=== PATIENT | male | born 1980 | race Caucasian/White ===

== ENCOUNTER → 2020-06-15 10:26 | Outpatient (CLI) | payer MEDICARE, SELFPAY ==
[2020-06-15 11:43] LABS: Anion Gap 15.8 mEq/L (5-15); Blood Urea Nitrogen 14 mg/dl (9-20); Calcium 10.4 mg/dl (8.4-10.2); Carbon Dioxide 30 mmol/L (22.0-30.0); Chloride 99 mmol/L (98-107); Estimated Glomerular Filt Rate 93 ml/min (>60); GFR (African American) 113 ML/MIN (>60); Glucose 231 mg/dl (74-100); Potassium 4.8 mmoL/L (3.5-5.1); Sodium 140 mmol/L (136-145)
== END ==
LOC: LAB 10:27 → RT 10:49
PROVIDERS: PCP Family Medicine; Visit Provider Urology
DX: R42 Dizziness and giddiness (principal); R94.31 Abnormal electrocardiogram [ECG] [EKG]
CPT/HCPCS: 36415; 80048; 93270

== ENCOUNTER → 2020-06-18 13:44 | Outpatient (CLI) | payer MEDICARE, SELFPAY ==
--- NOTE | 2020-06-18 13:44 | CT_ITS ---
PROCEDURE: CT CHEST W CON CLINCAL INDICATION: chest pain / pulmonary nodule Mid to lower chest/sternal pain, pulmonary nodules COMPARISON: [facility] CTA-CHEST from 03/19/2017 [facility] CT CHEST W/ CONTRAST from 05/14/2017 TECHNIQUE: IV Contrast: 75ml Optiray 350 Axial images obtained with sagittal and coronal reformats. All CT scans at the facility use one or more dose reduction, viz: automated exposure control, ma/kV adjustment per patient size (including targeted exams where dose is matched to indication, i.e. head), or iterative reconstruction technique. FINDINGS: The no mediastinal or hilar mass or adenopathy. There are few small mediastinal lymph nodes which are unchanged. Scattered small axillary nodes are present also unchanged. There is gynecomastia. There is a 6 mm nodule along the right minor fissure nonspecific and unchanged. There are atelectatic/fibrotic changes within the lingula which is slightly worse. No new nodules are evident. No effusions. No acute bony anomalies. Upper abdominal images show diffuse fatty liver IMPRESSION: 1. Parenchymal opacity in the lingula consistent with atelectasis or fibrosis which is slightly progressed. 2. No new nodules. 3. Other nonspecific nonacute findings as described above Dictated by: Xavi Alejandro MD 06/19/2020 08:45 Electronically signed by Xavi Alejandro MD in [place] 06/19/2020 08:45
== END ==
LOC: RAD 13:44
PROVIDERS: PCP Family Medicine; Visit Provider Family Medicine
DX: R07.9 Chest pain, unspecified (principal); R91.1 Solitary pulmonary nodule
CPT/HCPCS: 71260

== ENCOUNTER → 2020-06-21 07:36 | Outpatient (CLI) | payer MEDICARE, SELFPAY ==
--- NOTE | 2020-06-21 | CA_ITS ---
APPROVED REPORT Exam: Exercise Treadmill Technologist: Alix Dang Ht: 5 ft 11 in Wt: 240 lbs BSA: 2.28 m2 HR: 93 bpm BP: 137/79 mmHg Indications: Dizziness Medical History Medications: Lisinopril,,,,, Alprazolam,,,,, Aspirin,,,,, Hydrocodone,,,,, Pantoprazole,,,,, Albuterol,,,,, DulOXETINE,,,,, Tizanidine,,,,, Quetiapine,,,,, Stress Test Details Test: Clover HR Resting HR: 94 bpm Max Heart Rate (APMHR): 180 bpm Max HR Achieved: 157 bpm Target HR (85% APMHR): 153 bpm % of APMHR: 87 Recovery HR: 115 bpm BP Resting BP: 137.0/79.0 mmHg Max BP: 168.0/84.0 mmHg Recovery BP: 138.0/78.0 mmHg ECG Clinical Reason for Termination: Dyspnea Exercise duration: 07:18 min Highest Stage Achieved: Exercise capacity: 10.1 METs Stress ECG Conclusion Resting EKG: Normal sinus rhythm, PRWP Anteriorly. Symptoms: Chest pain Arrhythmias/Ectopy: None during stress. Brief bigeminy at 2:30 in with PVC's, trigeminy after [address]-T Changes: <1.[address] segment changes. Conclusion: Abnormal stress test. Patient exercised on a clover protocol for 7 minutes and 18 seconds to peak hear rate of 157 bpm (target 153 bpm) without ST segment changes. He developed dull SS CP with right arm discomfort (numbness) and dyspnea that caused him to stop exercise. Total METS acheived was 10.1 with peak blood pressure 165/80. He developed frequent PVC's in a bigeminal and trigeminal pattern at 2:30 minutes in recovery that persisted until about 8 minutes in recovery. Abnormal stress test due to development of chest discomfort with exercise relieved with rest. Test Summary Stage 3 01:00 14.0 3.4 154 . . . . REST . . . . . . . Standing REST 03:42 0.0 0.0 94 . 137/ 79 . . Stage 1 01:00 10.0 1.7 116 . . . . Stage 1 02:00 10.0 1.7 130 . . . . Stage 1 03:00 10.0 1.7 136 . 134/ 76 . . Stage 2 01:00 12.0 2.5 142 . . . . Stage 2 . . . . . . . Chest pain Stage 2 02:00 12.0 2.5 149 . . . . Stage 2 03:00 12.0 2.5 151 . 150/ 86 . . Stage 3 01:00 14.0 3.4 154 . . . . Stage 3 01:18 14.0 3.4 156 . . . Stop exercise at 07:18 RECOVERY 01:00 0.0 0.0 149 . . . . RECOVERY 02:00 0.0 0.0 139 . 165/ 80 . . RECOVERY 03:00 0.0 0.0 126 . 165/ 80 . . RECOVERY 04:00 0.0 0.0 124 . 168/ 84 . . RECOVERY 05:00 0.0 0.0 115 . 168/ 84 . . RECOVERY 06:00 0.0 0.0 116 . 168/ 84 . . RECOVERY 07:00 0.0 0.0 118 . 168/ 84 . . RECOVERY 08:00 0.0 0.0 114 . 168/ 84 . . RECOVERY 09:00 0.0 0.0 113 . 168/ 84 . . RECOVERY 10:00 0.0 0.0 115 . 168/ 84 . . RECOVERY 11:00 0.0 0.0 115 . 168/ 84 . . RECOVERY 12:00 0.0 0.0 0 . 168/ 84 . . RECOVERY 12:11 0.0 0.0 0 . 168/ 84 . . Electronically signed by : Ti Renae, 06/21/2020 17:54:49
--- NOTE | 2020-06-21 07:36 | CT_ITS ---
PROCEDURE: CT HEAD/BRAIN WO CON CLINICAL INDICATION: dizziness COMPARISON: No exams were available for comparison TECHNIQUE: Axial images obtained. All CT scans at the facility use one or more dose reduction, viz: automated exposure control, ma/kV adjustment per patient size (including targeted exams where dose is matched to indication, i.e. head), or iterative reconstruction technique. FINDINGS: No midline shift, mass effect, intracranial hemorrhage, hydrocephalus, or extra-axial fluid collection is evident. There minimal dural calcifications near the vertex of the brain. The calvarium has an unremarkable appearance. No mastoid effusion. Both internal auditory canals appear normal. No sinus air-fluid level. IMPRESSION: No acute intracranial finding Dictated by: Dr. Brandon Wright MD 06/21/2020 08:[address] Brandon Wright MD in [place] 06/21/2020 08:27
--- NOTE | 2020-06-21 09:02 | CA_ITS ---
APPROVED REPORT EXAM: Comprehensive 2D, Doppler, and color-flow Echocardiogram Auto Porter: Yamilka Lloyd RDCS Ht: 5 ft 11 in Wt: 240lbs BSA: 2.28 BP: 115/80 mmHg Indications: NEAR SYNCOPE,DIZZINESS,HTN,HLP 2D Dimensions LVOT 2.00 cm (M/F) 1.5-2.5 M-Mode Dimensions RVDd 3.33 cm (0.9-2.6) LVDd 5.02 cm (3.5-5.7) LVDs 4.14 cm (3.5-5.7) IVSd 0.73 cm (0.6-1.1) PWd 0.77 cm (0.6-1.1) EF (Teich) 36.40% FS 17.50% EDV (Teich) 119.30 mL ESV (Teich) 75.90 mL LV Diastology E/A Ratio 0.81 Mitral Valve MV A Velocity 74.00 (40-130 cm/s) Left Ventricle Left atrium is normal size, left ventricle is normal size, there is no concentric left ventricular hypertrophy, visually estimated ejection fraction 55% with no regional wall motion abnormality. Diastolic parameters are within normal range. Right Ventricle Right atrium and right ventricular normal size and contractility. Aortic Valve Aortic valve is grossly normal, there is no aortic stenosis or aortic insufficiency. Mitral Valve Mitral valve is grossly normal, there is trace mitral regurgitation. Tricuspid Valve Tricuspid valve is grossly normal, there is mild tricuspid regurgitation, tricuspid regurgitation jet velocity is inadequate for calculation of the right ventricular systolic pressure. Pulmonic Valve Pulmonic valve is poorly visualized. Great Vessels Aortic root is normal size. Pericardium No significant pericardial effusion noted. Conclusion 1. Normal left ventricular size, preserved left ventricular systolic function, visually estimated ejection fraction 55% with no regional wall motion abnormality, diastolic parameters are within normal range. 2. Trace mitral and mild tricuspid regurgitation. 3. No significant pericardial effusion noted. Electronically signed by : Ti Renae, 06/21/2020 19:00:57
== END ==
LOC: RAD 07:36
PROVIDERS: PCP Family Medicine; Visit Provider Urology
DX: R42 Dizziness and giddiness (principal); I10 Essential (primary) hypertension; R94.31 Abnormal electrocardiogram [ECG] [EKG]
CPT/HCPCS: 70450; 93017; 93306

== ENCOUNTER → 2020-06-22 14:06 | Outpatient (CLI) | payer MEDICARE, SELFPAY ==
[2020-06-22 14:17] LABS: Alanine Aminotransferase 99 U/L (12-78); Alkaline Phosphatase 140 U/L (38-126); Aspartate Amino Transferase 74 U/L (17-59); Bilirubin,Direct 0.2 mg/dl (0.0-0.4); Bilirubin,Indirect 0.5 mg/dL (0.0-0.9); Bilirubin,Total 0.7 mg/dl (0.2-1.3); Bilirubin,Unconjugated 0.6 mg/dL (0.0-1.1)
[2020-06-22 14:18] LABS: Albumin Level 4.5 g/dl (3.5-5.0); Chol/HDL Ratio 11.9 (1-3.5); Cholesterol 298 mg/dl (140-200); HDL Cholesterol 25 mg/dl (40-60); Total Protein,Serum 7.7 g/dl (6.3-8.2)
[2020-06-22 14:28] LABS: Triglycerides 745 mg/dl (30-150)
[2020-06-22 14:29] LABS: Direct LDL Cholesterol 134.14 mg/dL (100-129)
== END ==
PROVIDERS: Visit Provider Family Medicine
DX: I10 Essential (primary) hypertension (principal); R73.09 Other abnormal glucose
CPT/HCPCS: 80061; 80076; 83036

== ENCOUNTER → 2020-11-15 13:26 | Outpatient (CLI) | payer MEDICARE, SELFPAY ==
[2020-11-15 13:38] LABS: Basophils # 0.1 K/mm3 (0-0.2); Basophils % 1.2 % (0.1-2.0); Eosinophils # 0.4 K/mm3 (0.0-0.4); Eosinophils % 3.4 % (0.1-12.0); Hematocrit 45.7 % (42.0-52.0); Hemoglobin 16.2 g/dL (14.1-18.0); Lymphocytes # 4.1 K/mm3 (0.7-4.5); Lymphocytes % 34.1 % (10-50); Mean Corpuscular HGB Conc 35.5 g/dL (31.8-35.4); Mean Corpuscular Hemoglobin 32.9 pg (27.0-31.2); Mean Corpuscular Volume 92.8 fl (80-94); Mean Platelet Volume 8.9 fl (7.4-10.4); Monocytes # 0.6 K/mm3 (0.1-1.0); Monocytes % 5.3 % (1.7-9.3); Neutrophils # 6.7 K/mm3 (1.8-7.8); Platelet Count 242 K/mm3 (142-424); Red Blood Count 4.92 M/mm3 (4.60-6.20)
[2020-11-15 14:41] LABS: Chloride 99 mmol/L (98-107)
[2020-11-15 14:42] LABS: Potassium 3.7 mmoL/L (3.5-5.1); Sodium 140 mmol/L (136-145)
[2020-11-15 14:44] LABS: Alanine Aminotransferase 90 U/L (12-78); Albumin Level 5.3 g/dl (3.5-5.0); Albumin/Globulin Ratio 1.4 (1.1-1.8); Alkaline Phosphatase 106 U/L (38-126); Anion Gap 18.7 mEq/L (5-15); Aspartate Amino Transferase 58 U/L (17-59); Bilirubin,Total 0.8 mg/dl (0.2-1.3); Blood Urea Nitrogen 15 mg/dl (9-20); Carbon Dioxide 26 mmol/L (22.0-30.0); Estimated Glomerular Filt Rate 93 ml/min (>60); GFR (African American) 113 ML/MIN (>60); Globulin 3.7 g/dL (1.3-3.2)
[2020-11-15 14:45] LABS: Chol/HDL Ratio 5.5 (1-3.5); Cholesterol 248 mg/dl (140-200); Glucose 100 mg/dl (74-100); HDL Cholesterol 45 mg/dl (40-60); Triglycerides 208 mg/dl (30-150); VLDL Cholesterol 42 mg/dL (0-40)
[2020-11-15 15:02] LABS: T4 (Thyroxine) 8.1 ug/dl (5.53-11.0)
[2020-11-15 15:16] LABS: Thyroid Stimulating Hormone 1.31 uIU/mL (0.465-4.68)
[2020-11-15 15:32] LABS: Creatinine,Urine Random 72 mg/dL (Not Estab.); Microalbumin < 6.000 mg/L (0-16.7)
[2020-11-15 15:38] LABS: Hemoglobin A1C 5.7 % (4.0-6.0)
== END ==
PROVIDERS: Visit Provider Family Medicine
DX: E11.9 Type 2 diabetes mellitus without complications (principal); R80.9 Proteinuria, unspecified; Z79.84 Long term (current) use of oral hypoglycemic drugs; Z79.899 Other long term (current) drug therapy
CPT/HCPCS: 80053; 80061; 82043; 82570; 83036; 84436; 84443; 85025

== ENCOUNTER → 2021-01-20 09:06 | Outpatient (POV) | payer MEDICARE, SELFPAY ==
[2021-01-20 09:49] VITALS: BP 165/92; PULSE 110; RESP 18; TEMP 36.8; O2SAT 99; BMI 32.1
--- NOTE | 2021-01-27 08:52 | HMH.PMCON ---
Assessment and Plan (1) Neck pain Status: Chronic Category: Medical Code(s): M54.2 - Cervicalgia (2) Low back pain Status: Chronic Category: Medical Code(s): M54.5 - Low back pain (3) Lumbar radiculopathy Status: Chronic Category: Medical Code(s): M54.16 - Radiculopathy, lumbar region - Assessment and plan all Dx Assessment and Plan for all problems:: We will order the patient gabapentin 100 mg 1 tablet p.o. daily. He is having numbness and tingling in his left lower extremity. We will also order him an MRI of his cervical lumbar spine. We will see him back in the clinic afterwards to reevaluate his symptoms and review the MRI.. He has been instructed to contact clinic if he has an concerns for his next appointment. HPI - Data of Consult Patient: new to practice Consult date: 01/27/21 Requesting Physician: Fabienne Garcia APRN Primary Care Provider: Esa Deluca MD - Consult Narrative Reason for consult: Neck and mid back pain History of present illness: Mr. Canada is a 40 year old male who presents today for consultation for neck and low back pain with radicular symptoms. Patient is having numbness and tingling in left lower extremity. Patient has had previous medial branch blocks along with RFA and is gotten little to no relief. He says his pain is progressively worsening to the point that he is now having low back pain as well. He rates his pain an 8 out of 10. He tried physical therapy for greater than 6 weeks along with continued home stretching program and anti-inflammatories. He rates his pain a 7 out of 10 today. He does not have any imaging of his cervical or lumbar spine. CC: Fabienne Garcia APRN [facility] History I have reviewed the patient's past medical history: Yes Medical History: Reports:: Anxiety, Depression, Diabetes Mellitus Type 2, Gastroesophageal Reflux Disease(GERD), Hyperlipidemia, Hypertension Denies:: Cancer, Diabetes Mellitus Type 1, MRSA *Have you ever received a pneumonia vaccine?: Yes *Have you received a flu vaccine this season?: Yes Other Surgeries: Yes: Appendectomy, Cardiac Catheterization Amputation: No Fractures: No - *Social History Smoking Status: Former smoker Tobacco Type: cigarettes Alcohol Intake: never Substance Use Type: denies use *Occupational Status:: other Housing: house Household Members: other *Travel in the last 8 weeks: None - Psychiatric History Pschychiatric History:: Reports:: Anxiety, Depression Family Hx:: Unable to obtain Review of Systems - Review of Systems Review of Systems General: No recent weight changes, no fever, no sleep disturbances Respiratory: No cough, no shortness of air, no recurring pulmonary infections Cardiovascular/peripheral vascular: No chest pain, no palpitations, no edema, no shortness of breath Gastrointestinal: No new onset incontinence, normal bowel movements reported Genitourinary: No new onset incontinence Musculoskeletal: Neck and low back pain Psychiatric: Normal mood/affect Neurological: [Denies weakness in extremities], [denies balance issues] Meds Home Medications Medication Instructions Recorded Confirmed Type aspirin 81 mg tablet,delayed 81 mg PO DAILY tab 05/28/18 12/30/20 History release tizanidine 4 mg tablet 4 mg PO BID tab 05/31/20 12/30/20 History duloxetine 60 mg capsule,delayed 60 mg PO BID cap 06/15/20 12/30/20 History release quetiapine 300 mg tablet 300 mg PO DIRECTED tab 06/15/20 12/30/20 History gemfibrozil 600 mg tablet 600 mg PO BID #60 tab 08/05/20 12/30/20 Rx albuterol sulfate 90 mcg/actuation 1 inh INHALATION QID PRN #18 g 08/09/20 12/30/20 Rx aerosol inhaler cyproheptadine 4 mg tablet 4 mg PO BID tab 08/09/20 12/30/20 History ipratropium 20 mcg-albuterol 100 1 puff INHALATION QID #4 g 08/09/20 12/30/20 Rx mcg/actuation mist for inhalation dulaglutide 1.5 mg/0.5 mL 1.5 mg SQ WEEKLY #2 ml 09/14/20 12/30/20 Rx subcutane
== END ==
LOC: SC.PAIN 09:08
PROVIDERS: PCP Family Medicine; Visit Provider Clinical Nurse Specialist Family Health
DX: M54.2 Cervicalgia (principal); M54.5 Low back pain; M54.16 Radiculopathy, lumbar region
CPT/HCPCS: 99202; G0463

== ENCOUNTER → 2021-01-26 14:21 | Outpatient (CLI) | payer MEDICARE, MEDICAID, SELFPAY ==
--- NOTE | 2021-01-26 14:24 | MR_ITS ---
PROCEDURE: MR LUMBAR SPINE WO CON CLINICAL INDICATION: NECK AND BACK PAIN Pt c/o lbp with left leg pain, numbness and tingling xyrs. Pt denies injury or trauma. COMPARISON: No exams were available for comparison TECHNIQUE: Standard multiplanar multiecho sequences are performed without contrast. 3-D MIP and myelographic images are also rendered and reviewed FINDINGS: There is normal alignment. The spinal cord ends at the L2 level. L1-L2, L2-L3, and L3-L4 have an unremarkable appearance. There is mild facet hypertrophic change at L4-5 with mild bilateral foraminal narrowing slightly greater on the left. L5-S1: Mild bulging disc along with facet and ligamentum hypertrophy with mild bilateral foraminal narrowing. The bulging disc is slightly eccentric to the right abutting the S1 nerve roots on both sides. IMPRESSION: Lumbar spondylosis as described above. Please see above for detailed description. No extruded herniated disc or canal stenosis. Dictated by: Xavi Alejandro MD 01/31/2021 09:38 Xavi Alejandro MD in [place] 01/31/2021 09:38
--- NOTE | 2021-01-26 14:24 | MR_ITS ---
PROCEDURE: MR CERVICAL SPINE WO CON CLINICAL INDICATION: NECK AND BACK PAIN Pt states he is unable to turn head and has bilateral hand numbness. Pt also c/o rt sided scapula pain and has no hx of injury. COMPARISON: No exams were available for comparison TECHNIQUE: Standard multiplanar multiecho sequences are performed without contrast. 3-D MIP and myelographic images are also rendered and reviewed FINDINGS: There is normal alignment. Craniocervical junction has an unremarkable appearance. C2-C3: Unremarkable. C3-C4: Unremarkable. C4-C5: Unremarkable. C5-C6: Minimal left-sided foraminal narrowing from facet hypertrophic change. Minimal bulging disc C6-C7: There is a small left paracentral disc protrusion. There is some minimal cord flattening anteriorly and on the left. C7-T1: Unremarkable. No extruded herniated disc or canal stenosis. IMPRESSION: 1. C5-C6: Minimal left-sided foraminal narrowing from facet hypertrophic change. Minimal bulging disc 2. C6-C7: There is a small left paracentral disc protrusion. There is some minimal cord flattening anteriorly and on the left. 3. No extruded herniated disc or bony canal stenosis Dictated by: Xavi Alejandro MD 01/27/2021 16:01 Xavi Alejandro MD in [place] 01/27/2021 16:01
== END ==
PROVIDERS: PCP Family Medicine; Visit Provider Clinical Nurse Specialist Family Health
DX: M54.2 Cervicalgia (principal); M54.5 Low back pain
CPT/HCPCS: 72141; 72148; 76376

== ENCOUNTER → 2021-02-03 13:31 | Outpatient (POV) | payer MEDICARE, MEDICAID, SELFPAY ==
--- NOTE | 2021-02-03 13:56 | HMH.PAINSOAP ---
[facility] Pain Management SOAP Note Subjective:: Pleasant 40-year-old white male who presents today to discuss MRI findings. Patient is having quite a bit of neck and left lower back pain. Patient has extreme tenderness over his left SI joint. He has a positive Tamara test SI joint compression test Julius's test. Patient has had facet joint injections and RFA's in the past in both his lower back and neck and has had no relief. Patient has not decided to come to our clinic for second opinion. I do believe he would benefit from a left SI joint injection and also a C6-C7 cervical epidural steroid injection. Patient does have a protrusion at the C6-C7 level he has numbness and tingling in bilateral arms. He is not on any anticoagulation therapy. Patient's left SI joint also giving him quite a bit of trouble in regard to sitting and standing. He rates his pain today an 8 out of 10. He is on gabapentin 100 mg 1 p.o. daily from us he states that this is beneficial. ROS General: no recent weight change, no fever, no sleep disturbances Respiratory: no cough, no shortness of air, no recurring pulmonary infections Cardiovascular/Peripheral Vascular: No chest pain, No palpitations, no edema, no shortness of breath. Gastrointestinal: no new onset incontinence, normal bowel movements reported Genitourinary: no new onset incontinence Musculoskeletal: SI joint pain, neck pain Psychiatric: normal mood/ affect Neurological: [denies new onset weakness in extremities], [denies new onset balance issues] Objective:: Physical Exam General: Alert and oriented x3, no acute distress, pleasant and cooperative, [on room air] Lungs: Resps E/U, Symmetrical chest expansion, Eyes: PERRL Musculoskeletal: Flexion and extension of cervical and lumbar spine somewhat guarded secondary to pain, deep tendon reflexes normal, strength in upper and lower extremities [5/5], [abnormal gait noted] Neurological: speech clear, scrap preparer equal, no gross sensory deficits Assessment:: Degenerative disc disease cervical spine cervical radiculopathy, degenerative disc disease lumbar spine lumbar radiculopathy, sacroiliitis Plan:: We will set the patient up for a left SI joint injection and then 1 month later set him up for C6-C7 cervical epidural steroid injection. I will follow-up with him after this reassess his symptoms at that time he has been instructed to call the office if he has any issues prior to his next appointment. Dr. Gold has reviewed this note and agrees with this plan of care. This note was dictated using voice recognition software and may contain errors or omissions [facility] History I have reviewed the patient's past medical history: Yes Medical History: Reports:: Anxiety, Depression, Diabetes Mellitus Type 2, Gastroesophageal Reflux Disease(GERD), Hyperlipidemia, Hypertension Denies:: Cancer, Diabetes Mellitus Type 1, MRSA *Have you ever received a pneumonia vaccine?: Yes *Have you received a flu vaccine this season?: Yes Other Surgeries: Yes: Appendectomy, Cardiac Catheterization Amputation: No Fractures: No - *Social History Smoking Status: Former smoker Tobacco Type: cigarettes Alcohol Intake: never Substance Use Type: denies use *Occupational Status:: other Housing: house Household Members: other *Travel in the last 8 weeks: None - Psychiatric History Pschychiatric History:: Reports:: Anxiety, Depression Family Hx:: Unable to obtain
[2021-02-03 15:49] VITALS: BP 122/82; PULSE 102; RESP 18; O2SAT 98; BMI 32.1
== END ==
PROVIDERS: PCP Internal Medicine; Visit Provider Clinical Nurse Specialist Family Health
DX: M50.10 Cervical disc disorder with radiculopathy, unspecified cervical region (principal); M51.16 Intervertebral disc disorders with radiculopathy, lumbar region; M46.1 Sacroiliitis, not elsewhere classified
CPT/HCPCS: 99212; G0463

== ENCOUNTER 2021-02-25 14:13 | Day surgery (SDC) | payer MEDICARE, MEDICAID, SELFPAY ==
[2021-02-25 14:36] VITALS: BP 128/81; PULSE 105; RESP 18; TEMP 36.6; O2SAT 95; BMI 32.1
--- NOTE | 2021-02-25 14:57 | HMH.PMPROC ---
- Procedure Date: 02/25/21 Time: 14:57 Anesthesiologist:: Sg Gold MD Complications:: None Pre-procedure Diagnosis:: Sacroiliitis Post-procedure Diagnosis:: Same Indications for Procedure:: Patient is a pleasant 40-year-old white male who we are treating for left-sided hip pain. He is tender over the left SI joint. He has a positive Julius's test on the left side. He has a positive Tamara test on left side. He has a positive distraction test. He has a positive SI joint compression test. We will do a left SI joint injection under fluoroscopy today to help him with his pain symptoms. Procedure Details:: Left SI joint injection under fluoroscopy Informed consent was obtained and the risks and benefits of the procedure was explained to the patient. Patient was taken to the procedure room. Patient was placed prone on the procedure table. The left hip was prepped using ChloraPrep. The skin and subcutaneous tissues were anesthetized using lidocaine. I placed a 22-gauge spinal needle into the inferior aspect of the left SI joint. Needle placement was confirmed with dye. After this we injected 5 mL bupivacaine 0.25% and Depo-Medrol 40 mg into the left SI joint. The patient tolerated the procedure well with no complication. Plan and Disposition:: We will follow-up with him in 2 weeks. Will reevaluate symptoms at that time.
[2021-02-25 14:58] VITALS: BP 125/78; PULSE 85; RESP 18
[2021-02-25 14:59] VITALS: BP 125/89; PULSE 85; RESP 18; O2SAT 98
[2021-02-25 15:07] VITALS: BP 118/77; PULSE 100; RESP 20; O2SAT 95
== END 2021-02-25 15:07 | disposition home or self-care (01) ==
LOC: SC.PAINP 14:16
PROVIDERS: PCP Family Medicine; Visit Provider Anesthesiology
DX: M46.1 Sacroiliitis, not elsewhere classified (principal); E11.9 Type 2 diabetes mellitus without complications; I10 Essential (primary) hypertension; K21.9 Gastro-esophageal reflux disease without esophagitis; I49.3 Ventricular premature depolarization; F43.10 Post-traumatic stress disorder, unspecified; F41.9 Anxiety disorder, unspecified; Z90.49 Acquired absence of other specified parts of digestive tract; Z88.0 Allergy status to penicillin; Z88.1 Allergy status to other antibiotic agents; E78.5 Hyperlipidemia, unspecified; Z82.49 Family history of ischemic heart disease and other diseases of the circulatory system
CPT/HCPCS: 27096; G0260; J1040; Q9966

== ENCOUNTER → 2021-03-29 18:07 | Outpatient (CLI) | payer MEDICARE, MEDICAID, SELFPAY ==
[2021-03-29 19:01] LABS: Hemoglobin A1C 5.3 % (4.0-6.0)
== END ==
PROVIDERS: Visit Provider Family Medicine
DX: E11.9 Type 2 diabetes mellitus without complications (principal); Z79.84 Long term (current) use of oral hypoglycemic drugs
CPT/HCPCS: 83036

== ENCOUNTER → 2021-03-31 10:36 | Outpatient (POV) | payer MEDICARE, MEDICAID, SELFPAY ==
[2021-03-31 10:52] VITALS: BP 127/85; PULSE 114; RESP 18; O2SAT 98; BMI 32.1
--- NOTE | 2021-03-31 12:36 | HMH.PAINSOAP ---
[facility] Pain Management SOAP Note Subjective:: Patient is pleasant 40-year-old white male who presents today for follow-up after left SI joint injection. Patient had 80% relief with his injection and is overall doing well his only complaint today is his neck pain. Patient has had facet joint injections in his neck in the past with no relief. Most of his pain is in his lower neck radiating into bilateral upper extremities. Patient is not on any anticoagulation therapy. We discussed cervical epidural steroid injection he would like to move forward with this. Patient does have a recent MRI showing degenerative changes at C6-C7 along with a bulging disc. He rates his pain today needed 10 ROS General: no recent weight change, no fever, no sleep disturbances Respiratory: no cough, no shortness of air, no recurring pulmonary infections Cardiovascular/Peripheral Vascular: No chest pain, No palpitations, no edema, no shortness of breath. Gastrointestinal: no new onset incontinence, normal bowel movements reported Genitourinary: no new onset incontinence Musculoskeletal: Neck pain, arm pain Psychiatric: normal mood/ affect Neurological: [denies new onset weakness in extremities], [denies new onset balance issues] Objective:: Physical Exam General: Alert and oriented x3, no acute distress, pleasant and cooperative, [on room air] Lungs: Resps E/U, Symmetrical chest expansion, Eyes: PERRL Musculoskeletal: Flexion and extension of cervical spine somewhat guarded secondary to pain, deep tendon reflexes normal, strength in upper and lower extremities [5/5], normal gait noted Neurological: speech clear, lockstitch zipper setter equal, no gross sensory deficits Assessment:: Degenerative disc disease cervical spine cervical radiculopathy, sacroiliitis Plan:: We will plan a C6-C7 cervical epidural steroid injection for the patient. Given the symptomology I do believe this would benefit him. He has been instructed to call the office if he has any issues prior to his next appointment. Dr. Gold has reviewed this note and agrees with this plan of care. This note was dictated using voice recognition software and may contain errors or omissions [facility] History I have reviewed the patient's past medical history: Yes Medical History: Reports:: Anxiety, Depression, Diabetes Mellitus Type 2, Gastroesophageal Reflux Disease(GERD), Hyperlipidemia, Hypertension Denies:: Cancer, Diabetes Mellitus Type 1, MRSA, Seizures *Have you ever received a pneumonia vaccine?: Yes *Have you received a flu vaccine this season?: Yes Laterality Cases: Right: Arthroscopy Shoulder Other Surgeries: Yes: Appendectomy, Cardiac Catheterization Amputation: No Fractures: No - *Social History Smoking Status: Former smoker Tobacco Type: cigarettes Alcohol Intake: never Substance Use Type: denies use *Occupational Status:: other Housing: house Household Members: spouse *Travel in the last 8 weeks: None - Psychiatric History Pschychiatric History:: Reports:: Anxiety, Depression Family Hx:: Unable to obtain
== END ==
PROVIDERS: PCP Family Medicine; Visit Provider Clinical Nurse Specialist Family Health
DX: M50.10 Cervical disc disorder with radiculopathy, unspecified cervical region (principal); M46.1 Sacroiliitis, not elsewhere classified
CPT/HCPCS: 99212; G0463

== ENCOUNTER 2021-04-22 09:48 | Day surgery (SDC) | payer MEDICARE, MEDICAID, SELFPAY ==
[2021-04-22 09:54] VITALS: BP 141/78; PULSE 100; RESP 18; TEMP 36.6; O2SAT 98; BMI 33.5
[2021-04-22 11:44] VITALS: BP 120/75; PULSE 88; RESP 18; O2SAT 98
[2021-04-22 11:46] VITALS: BP 120/75; PULSE 88; RESP 18; O2SAT 98
[2021-04-22 12:09] VITALS: BP 128/78; PULSE 76; RESP 18; O2SAT 98
--- NOTE | 2021-04-22 13:38 | HMH.PMPROC ---
- Procedure Date: 04/22/21 Time: 13:38 Anesthesiologist:: Kasey Aranda MD Complications:: None Pre-procedure Diagnosis:: Cervical Radiculopathy, degenerative disc disease of the cervical spine Post-procedure Diagnosis:: Same Indications for Procedure:: Patient is a pleasant 40-year-old white male who presents today with degenerative changes of the cervical spine resulting in significant neck pain radiating down both arms. MRI demonstrated degenerative changes at C6-7 along with a bulging disc. Exam today demonstrated guarding with flexion extension of the cervical spine secondary to pain. Upper and lower extremities motor strength was grossly intact. Normal gait noted. Of note, patient has previously undergone left SI joint injection and demonstrates as well as facet joint injections in his neck in the past with no relief. We will plan a C6-C7 cervical epidural steroid injection today. Procedure Details:: Cervical epidural steroid injection under fluoroscopy Informed consent was obtained and the risks and benefits of the procedure was explained to the patient. The patient was taken to the procedure room placed prone on the procedure table. The neck was prepped using ChloraPrep. The skin and subcutaneous tissues were anesthetized using lidocaine. I placed a 18-gauge epidural needle into the C6-C7 interspace and advanced using [id number] to air and fluoroscopic guidance. After confirmation of needle placement in the epidural space with dye, I injected 2 mL's normal saline and Depo-Medrol 80 mg. The patient tolerated the procedure well with no complications. Plan and Disposition:: Patient was discharged home in stable condition. Plan is to follow-up in 2 weeks for reevaluation.
== END 2021-04-22 12:10 | disposition home or self-care (01) ==
LOC: SC.PAINP 09:52
PROVIDERS: PCP Family Medicine; Visit Provider Anesthesiology Pain Medicine
DX: M50.10 Cervical disc disorder with radiculopathy, unspecified cervical region (principal); E78.5 Hyperlipidemia, unspecified; I10 Essential (primary) hypertension; F41.9 Anxiety disorder, unspecified; F32.9 Major depressive disorder, single episode, unspecified; Z88.0 Allergy status to penicillin; Z88.1 Allergy status to other antibiotic agents; I25.10 Atherosclerotic heart disease of native coronary artery without angina pectoris; G43.909 Migraine, unspecified, not intractable, without status migrainosus
CPT/HCPCS: 62321; J1040; Q9966

== ENCOUNTER → 2021-05-16 09:08 | Outpatient (POV) | payer MEDICARE, MEDICAID, SELFPAY ==
[2021-05-16 09:14] VITALS: BP 151/88; PULSE 100; RESP 18; O2SAT 96; BMI 33.5
--- NOTE | 2021-05-16 09:28 | [facility].PAINSOAP ---
[facility] Pain Management SOAP Note Subjective:: Patient is a 40-year-old white male who presents today for follow-up after a cervical epidural steroid injection. He is being treated in the clinic for degenerative disc disease cervical spine and cervical radiculopathy symptoms. Patient says that he got only 1 week of relief. He has undergone multiple rounds of injective therapy and has gotten 1 to 2 weeks of relief, however, his pain always returns. He has also had epidurals a medial branch blocks in [facility] at a pain management clinic. At that time he was only getting relief with relief as well. He has been managed in the past with Percocet daily by his primary care provider Dr. Deluca. He says this gives him enough relief to be able to do daily activity. He has tried TENS unit, ice and heat therapy as well as active home stretching. He has also tried physical therapy for more than 6 weeks in the past. Patient has neck pain that is worse with movement from side to side. He says the pain radiates into bilateral arms and hands with paresthesia. He also has low back pain that is worse into the left leg with paresthesia. He rates his pain an 8 out of 10 today. He has not gotten any relief with long-term with the injections. Patient says that he does well with the oral medications. He says Dr. Deluca has prescribed him the medication. He and I did discuss today that if he is no longer getting relief with oral medications, his last option within our clinic would be implanted devices such as spinal cord stimulation versus intrathecal therapy. Patient would like to try to continue oral medications for as long as possible for undergoing implanted devices. Patient not are in agreement that he will continue with oral medications per his primary care provider. In the event that his pain worsens, he will revisit the possibility of implanted devices. Review of Systems General: No recent weight changes, no fever, no sleep disturbances Respiratory: No cough, no shortness of air, no recurring pulmonary infections Cardiovascular/peripheral vascular: No chest pain, no palpitations, no edema, no shortness of breath Gastrointestinal: No new onset incontinence, normal bowel movements reported Genitourinary: No new onset incontinence Musculoskeletal: Neck pain worse with turning and twisting, low back pain with radiation into left leg, numbness and tingling bilateral upper and lower extremities Psychiatric: Normal mood/affect Neurological: [Denies weakness in extremities], [denies balance issues] Objective:: Physical exam General: Alert and oriented x3, no acute distress, pleasant and cooperative, [on room air] Lungs: Respirations even and unlabored, symmetrical chest expansion Eyes: PERRL Musculoskeletal: Flexion and extension of [] cervical and lumbar spine somewhat guarded secondary to pain, deep tendon reflexes normal, strength in upper and lower extremities [5/5], [abnormal gait noted] Neurological: Speech clear, millroom supervisor equal, no gross sensory deficit Assessment:: Degenerative disc disease lumbar spine with lumbar radiculopathy symptoms, degenerative disc disease cervical spine cervical radiculopathy symptoms Plan:: Patient I discussed his options in the clinic. For now, he will continue with oral medications with Dr. Deluca. He has been taking Percocet 1 tablet daily, he may benefit from adding on 2-3 times daily with the medication with his primary care provider. If the patient does not get relief, he will contact the clinic for possible implanted devices such as intrathecal therapy versus SCS therapy. He will contact the clinic as needed. Patient has been instructed to contact the clinic with any concerns before the next appointment. Dr. Gold has reviewed this note and agrees with this plan of care. This note was dictated using voice recognition software and make contain errors or omissions. [facility] History Medical History: Reports
== END ==
PROVIDERS: PCP Family Medicine; Visit Provider Clinical Nurse Specialist Family Health
DX: M51.16 Intervertebral disc disorders with radiculopathy, lumbar region (principal); M50.10 Cervical disc disorder with radiculopathy, unspecified cervical region
CPT/HCPCS: 99212; G0463

== ENCOUNTER → 2021-05-17 17:19 | Outpatient (CLI) | payer MEDICARE, MEDICAID, SELFPAY ==
[2021-05-17 19:16] LABS: Barbiturates Screen,Urine Negative ng/ml (<200); Benzodiazepines Screen,Urine Negative ng/ml (<200)
[2021-05-17 19:17] LABS: Amphetamine/Metha Screen,Urine Negative ng/ml (<1000)
[2021-05-17 19:18] LABS: Cannabinoid Screen,Urine Negative ng/ml (<50); Methadone Screen,Urine Negative ng/ml (<300)
[2021-05-17 19:19] LABS: Cocaine Screen,Urine Negative ng/ml (<300)
[2021-05-17 19:20] LABS: Opiate Screen,Urine Negative ng/ml (<300); Phencyclidine Screen,Urine Negative ng/ml (<25)
== END ==
PROVIDERS: Visit Provider Family Medicine
DX: Z79.899 Other long term (current) drug therapy (principal)
CPT/HCPCS: 80305

== ENCOUNTER → 2021-09-02 14:05 | Outpatient (CLI) | payer MEDICARE, MEDICAID, SELFPAY ==
[2021-09-02 14:17] LABS: Alanine Aminotransferase 56 U/L (12-78); Albumin Level 4.7 g/dl (3.5-5.0); Albumin/Globulin Ratio 1.4 (1.1-1.8); Alkaline Phosphatase 84 U/L (38-126); Anion Gap 17.3 mEq/L (5-15); Aspartate Amino Transferase 48 U/L (17-59); Bilirubin,Total 0.7 mg/dl (0.2-1.3); Blood Urea Nitrogen 9 mg/dl (9-20); Calcium 9.7 mg/dl (8.4-10.2); Carbon Dioxide 31 mmol/L (22.0-30.0); Chloride 99 mmol/L (98-107); Estimated Glomerular Filt Rate 148 ml/min (>60); GFR (African American) 179 ML/MIN (>60); Globulin 3.3 g/dL (1.3-3.2); Glucose 104 mg/dl (74-100); Potassium 3.3 mmoL/L (3.5-5.1); Sodium 144 mmol/L (136-145)
[2021-09-02 14:34] LABS: 25-OH Vitamin D, Total 42.5 ng/mL (30-100)
[2021-09-02 14:44] LABS: Hemoglobin A1C 4.9 % (4.0-6.0)
[2021-09-02 15:12] LABS: Magnesium 0.3 mg/dl (1.6-2.3)
== END ==
PROVIDERS: Visit Provider Family Medicine
DX: E11.9 Type 2 diabetes mellitus without complications (principal); E55.9 Vitamin D deficiency, unspecified; Z79.84 Long term (current) use of oral hypoglycemic drugs
CPT/HCPCS: 80053; 82306; 83036; 83735

== ENCOUNTER → 2022-02-21 13:25 | Outpatient (CLI) | payer MEDICARE, MEDICAID, SELFPAY ==
[2022-02-21 13:23] LABS: Basophils # 0.1 K/mm3 (0-0.2); Basophils % 1.4 % (0.1-2.0); Eosinophils # 0.6 K/mm3 (0.0-0.4); Eosinophils % 6.8 % (0.1-12.0); Hematocrit 41.6 % (42.0-52.0); Hemoglobin 14.2 g/dL (14.1-18.0); Lymphocytes # 3.6 K/mm3 (0.7-4.5); Lymphocytes % 38.5 % (10-50); Mean Corpuscular HGB Conc 34.2 g/dL (31.8-35.4); Mean Corpuscular Volume 96.5 fl (80-94); Mean Platelet Volume 10.1 fl (7.4-10.4); Monocytes # 0.5 K/mm3 (0.1-1.0); Monocytes % 5.2 % (1.7-9.3); Neutrophils # 4.4 K/mm3 (1.8-7.8); Neutrophils % 48.1 % (37.0-80.0); Platelet Count 274 K/mm3 (142-424); Red Blood Count 4.32 M/mm3 (4.60-6.20); Red Cell Distribution Width 13.8 % (11.5-17.5); White Blood Count 9.2 K/mm3 (4.8-10.8)
[2022-02-21 13:41] LABS: Alanine Aminotransferase 73 U/L (12-78); Albumin Level 4.5 g/dl (3.5-5.0); Albumin/Globulin Ratio 1.9 (1.1-1.8); Alkaline Phosphatase 88 U/L (38-126); Anion Gap 14.3 mEq/L (5-15); Aspartate Amino Transferase 55 U/L (17-59); Bilirubin,Total 0.5 mg/dl (0.2-1.3); Blood Urea Nitrogen 6 mg/dl (9-20); Calcium 9.7 mg/dl (8.4-10.2); Carbon Dioxide 24 mmol/L (22.0-30.0); Chloride 104 mmol/L (98-107); Chol/HDL Ratio 5.1 (1-3.5); Cholesterol 163 mg/dl (140-200); Estimated Glomerular Filt Rate 124 ml/min (>60); GFR (African American) 150 ML/MIN (>60); Globulin 2.4 g/dL (1.3-3.2); Glucose 139 mg/dl (74-100); HDL Cholesterol 32 mg/dl (40-60); Potassium 3.3 mmoL/L (3.5-5.1); Sodium 139 mmol/L (136-145); Total Protein,Serum 6.9 g/dl (6.3-8.2); Triglycerides 254 mg/dl (30-150); VLDL Cholesterol 51 mg/dL (0-40)
[2022-02-21 13:51] LABS: Hemoglobin A1C 5.5 % (4.0-6.0)
[2022-02-21 13:52] LABS: Direct LDL Cholesterol 91.61 mg/dL (100-129)
[2022-02-21 14:14] LABS: Magnesium 0.9 mg/dl (1.6-2.3)
== END ==
PROVIDERS: Visit Provider Family Medicine
DX: M54.2 Cervicalgia (principal); E11.9 Type 2 diabetes mellitus without complications; K76.0 Fatty (change of) liver, not elsewhere classified; E78.5 Hyperlipidemia, unspecified; Z79.84 Long term (current) use of oral hypoglycemic drugs
CPT/HCPCS: 80053; 80061; 83036; 83735; 85025

== ENCOUNTER → 2022-03-01 12:37 | Outpatient (CLI) | payer MEDICARE, MEDICAID, SELFPAY ==
--- NOTE | 2022-03-01 12:38 | CA_ITS ---
APPROVED REPORT EXAM: Comprehensive 2D, Doppler, and color-flow Echocardiogram Wood Tank Builder: Radha Garcia, RCS, RVS Ht: 5 ft 11 in Wt: 250lbs BSA: 2.32 BP: 141/88 mmHg Indications: CP, SOB, DM, HTN, HLD, Abn stress, Family hx-hd 2D Dimensions IVSd 0.92 cm LVEF (Visual) 64.60 % PWd 0.83 cm LA Volume 29.50 mL LVDd 5.15 cm LA Volume Index 12.70 mL/m2 (M/F) 16-34 LVDs 3.32 cm Left Atrium 3.18 cm LVOT 2.00 cm (M/F) 1.5-2.5 M-Mode Dimensions RVDd 3.34 cm (0.9-2.6) LA Diam 3.64 cm (1.9-4.0) LVDd 4.87 cm (3.5-5.7) Ao Diam 3.14 cm (2.0-3.7) LVDs 3.38 cm (3.5-5.7) IVSd 0.87 cm (0.6-1.1) PWd 0.91 cm (0.6-1.1) EF (Teich) 57.90% EPSs 0.43 cm FS 30.60% EDV (Teich) 111.20 mL TAPSE 2.22 (<1.7) ESV (Teich) 46.80 mL LV Diastology E Decel Time 237.00 (160-240 msec) E/A Ratio 1.10 MED E' 6.80 (< 7 cm/sec) MED A' 8.60 cm/s E'/MED E' Ratio 8.91 (>14) LAT E' 10.00 (<10 cm/sec) LAT A' 7.70 cm/s E/LAT E' Ratio 6.06 (>14) Aortic Valve LVOT Max 91.00 (70-110 cm/s) LVOT VTI 15.99 cm AoV Peak Reynaldo. 164.00 (50-130 cm/s) AO Peak GR. 10.70 mmHg AO Mean GR. 5.30 (<5 mmHg) AO VTI 27.48 (18-25 cm) YARELI (VTI) 1.83 (2.5-4.5 cm2) Mitral Valve MV A Velocity 55.00 (40-130 cm/s) E/A Ratio 1.10 MV Decel. Time 237.00 (160-240 ms) MV Mean Gr. 2.00 (<2mmHg) MV PHT 60.00 ms Pulmonary Valve PV Peak Velocity 107.00 (50-150 cm/s) MN End VMAX 193.00 cm/s Tricuspid Valve TR P. Velocity 175.00 cm/s RAP Estimate 10.00 mmHg RVSP 22.30 mmHg Left Ventricle Technically difficult study because of the patient's left and poor acoustic windows. Left atrium normal size, left ventricle normal size, mild concentric left ventricular hypertrophy, estimated ejection fraction 55% with no regional wall motion abnormality, diastolic parameters are inconclusive. Right Ventricle Right atrium and right ventricular normal size and contractility. Aortic Valve Aortic valve is minimally thickened and fibrosed there is no aortic stenosis or aortic insufficiency. Mitral Valve Mitral valve grossly normal, there is trace mitral regurgitation. Tricuspid Valve Tricuspid grossly normal, there is trace tricuspid regurgitation, tricuspid regurgitation jet velocity is inadequate for calculation of the right ventricular systolic pressure. Pulmonic Valve Pulmonic valve is poorly visualized. Great Vessels Aortic root is normal size. Inferior vena cava is poorly visualized. Pericardium No significant pericardial effusion noted. Conclusion 1. Normal left ventricular size, mild concentric left ventricular hypertrophy, estimated ejection fraction 55% with no regional wall motion abnormality, diastolic parameters are inconclusive. 2. Trace mitral and tricuspid regurgitation. 3. No significant pericardial effusion noted. 4. Inferior vena cava is poorly visualized. Electronically signed by : Ti Renae MD 03/01/2022 21:30:03
== END ==
PROVIDERS: PCP Family Medicine; Visit Provider Physician Assistant
DX: R07.9 Chest pain, unspecified
CPT/HCPCS: 93306

== ENCOUNTER → 2022-09-21 11:25 | Outpatient (CLI) | payer MEDICARE, MEDICAID, SELFPAY ==
[2022-09-21 14:37] LABS: Microalbumin/Creatinine Ratio 13.6
[2022-09-21 14:42] LABS: Creatinine,Urine Random 76 mg/dL (Not Estab.)
== END ==
PROVIDERS: PCP Family Medicine; Visit Provider Family Medicine
DX: E11.9 Type 2 diabetes mellitus without complications (principal)
CPT/HCPCS: 82043; 82570

== ENCOUNTER → 2022-10-06 08:31 | Outpatient (CLI) | payer MEDICARE, MEDICAID, SELFPAY ==
[2022-10-06 15:31] LABS: Alanine Aminotransferase 117 U/L (12-78); Albumin Level 4.2 g/dl (3.5-5.0); Albumin/Globulin Ratio 1.7 (1.1-1.8); Alkaline Phosphatase 218 U/L (38-126); Anion Gap 17.6 mEq/L (5-15); Aspartate Amino Transferase 93 U/L (17-59); Bilirubin,Total 0.6 mg/dl (0.2-1.3); Blood Urea Nitrogen 13 mg/dl (9-20); Calcium 9.2 mg/dl (8.4-10.2); Carbon Dioxide 23 mmol/L (22.0-30.0); Chloride 98 mmol/L (98-107); Chol/HDL Ratio 5.2 (1-3.5); Cholesterol 157 mg/dl (140-200); Estimated Glomerular Filt Rate 123 ml/min (>60); GFR (African American) 149 ML/MIN (>60); Globulin 2.5 g/dL (1.3-3.2); Glucose 356 mg/dl (74-100); HDL Cholesterol 30 mg/dl (40-60); Potassium 3.6 mmoL/L (3.5-5.1); Sodium 135 mmol/L (136-145); Total Protein,Serum 6.7 g/dl (6.3-8.2); Triglycerides 356 mg/dl (30-150); VLDL Cholesterol 71 mg/dL (0-40)
[2022-10-06 15:41] LABS: Direct LDL Cholesterol 79.59 mg/dL (100-129)
[2022-10-06 15:50] LABS: Hemoglobin A1C 10.2 % (4.0-6.0)
== END ==
PROVIDERS: PCP Family Medicine; Visit Provider Family Medicine
DX: E11.9 Type 2 diabetes mellitus without complications (principal); Z79.4 Long term (current) use of insulin
CPT/HCPCS: 80053; 80061; 83036

== ENCOUNTER → 2023-05-15 23:13 | Outpatient (CLI) | payer MEDICARE, MEDICAID, SELFPAY ==
[2023-05-15 19:54] LABS: Alanine Aminotransferase 72 U/L (12-78); Albumin Level 4.8 g/dl (3.5-5.0); Albumin/Globulin Ratio 1.8 (1.1-1.8); Alkaline Phosphatase 102 U/L (38-126); Anion Gap 19.1 mEq/L (5-15); Aspartate Amino Transferase 54 U/L (17-59); Bilirubin,Total 0.6 mg/dl (0.2-1.3); Blood Urea Nitrogen 24 mg/dl (9-20); Calcium 9.9 mg/dl (8.4-10.2); Carbon Dioxide 24 mmol/L (22.0-30.0); Chloride 102 mmol/L (98-107); Estimated Glomerular Filt Rate 92 ml/min (>60); GFR (African American) 111 ML/MIN (>60); Globulin 2.7 g/dL (1.3-3.2); Glucose 95 mg/dl (74-100); Magnesium 1.2 mg/dl (1.6-2.3); Potassium 4.1 mmoL/L (3.5-5.1); Sodium 141 mmol/L (136-145); Total Protein,Serum 7.5 g/dl (6.3-8.2)
[2023-05-15 20:18] LABS: Hemoglobin A1C 7.1 % (4.0-6.0)
[2023-05-15 20:26] LABS: Prostate Specific Ag Screen 0.6 ng/ml (0.0-4.0)
[2023-05-21 04:13] LABS: Testosterone, Total, LC/MS 388 ng/dL (.)
== END ==
PROVIDERS: PCP Family Medicine; Visit Provider Family Medicine
DX: I10 Essential (primary) hypertension (principal); E11.9 Type 2 diabetes mellitus without complications; G56.00 Carpal tunnel syndrome, unspecified upper limb; Z12.5 Encounter for screening for malignant neoplasm of prostate; Z79.4 Long term (current) use of insulin
CPT/HCPCS: 80053; 83036; 83735; 84403; 84443; G0103

== ENCOUNTER → 2023-08-17 23:46 | Outpatient (CLI) | payer MEDICARE, MEDICAID, SELFPAY ==
[2023-08-17 18:59] LABS: Hemoglobin A1C 6.1 % (4.0-6.0)
[2023-08-19 11:33] LABS: Testosterone,Total 246 ng/dL (264-916)
== END ==
PROVIDERS: PCP Family Medicine; Visit Provider Family Medicine
DX: E11.9 Type 2 diabetes mellitus without complications (principal); Z79.84 Long term (current) use of oral hypoglycemic drugs
CPT/HCPCS: 83036; 84403

== ENCOUNTER → 2023-11-09 23:20 | Outpatient (CLI) | payer MEDICARE, SELFPAY ==
[2023-11-09 19:38] LABS: Barbiturates Screen,Urine Negative ng/ml (<200)
[2023-11-09 19:39] LABS: Benzodiazepines Screen,Urine Positive ng/ml (<200)
[2023-11-09 19:40] LABS: Amphetamine/Metha Screen,Urine Negative ng/ml (<1000); Methadone Screen,Urine Negative ng/ml (<300)
[2023-11-09 19:41] LABS: Cannabinoid Screen,Urine Negative ng/ml (<50)
[2023-11-09 19:42] LABS: Cocaine Screen,Urine Negative ng/ml (<300)
[2023-11-09 19:43] LABS: Opiate Screen,Urine Negative ng/ml (<300)
[2023-11-09 19:44] LABS: Phencyclidine Screen,Urine Negative ng/ml (<25)
== END ==
PROVIDERS: PCP Family Medicine; Visit Provider Family Medicine
DX: M54.2 Cervicalgia (principal)
CPT/HCPCS: 80305

== ENCOUNTER 2023-12-28 22:46 | Outpatient (CLI) | payer MEDICARE, SELFPAY ==
[2023-12-28 18:28] LABS: Alanine Aminotransferase 68 U/L (12-78); Albumin Level 4.4 g/dl (3.5-5.0); Albumin/Globulin Ratio 1.6 (1.1-1.8); Alkaline Phosphatase 139 U/L (38-126); Anion Gap 10.3 mEq/L (5-15); Aspartate Amino Transferase 60 U/L (17-59); Bilirubin,Total 0.5 mg/dl (0.2-1.3); Blood Urea Nitrogen 13 mg/dl (9-20); Calcium 9.8 mg/dl (8.4-10.2); Carbon Dioxide 28 mmol/L (22.0-30.0); Chloride 102 mmol/L (98-107); Estimated Glomerular Filt Rate 81 ml/min (>60); GFR (African American) 98 ML/MIN (>60); Globulin 2.7 g/dL (1.3-3.2); Glucose 158 mg/dl (74-100); Potassium 4.3 mmoL/L (3.5-5.1); Sodium 136 mmol/L (136-145); Total Protein,Serum 7.1 g/dl (6.3-8.2)
[2023-12-28 18:30] LABS: Hemoglobin A1C 7.3 % (4.0-6.0)
== END 2023-12-28 23:59 ==
LOC: LAB.DROPOF 22:50
PROVIDERS: PCP Family Medicine; Visit Provider Family Medicine
DX: E11.9 Type 2 diabetes mellitus without complications (principal)
CPT/HCPCS: 80053; 83036

== ENCOUNTER 2024-03-26 09:11 | Outpatient (CLI) | payer MEDICARE, SELFPAY ==
[2024-03-26 19:17] LABS: Basophils # 0.1 K/mm3 (0-0.2); Basophils % 1.2 % (0.1-2.0); Eosinophils # 0.5 K/mm3 (0.0-0.4); Eosinophils % 4.7 % (0.1-12.0); Hemoglobin 15.7 g/dL (14.1-18.0); Lymphocytes # 3.4 K/mm3 (0.7-4.5); Lymphocytes % 32.9 % (10-50); Mean Corpuscular HGB Conc 32.7 g/dL (31.8-35.4); Mean Corpuscular Hemoglobin 31.8 pg (27.0-31.2); Mean Corpuscular Volume 97.3 fl (80-94); Monocytes # 0.8 K/mm3 (0.1-1.0); Monocytes % 7.5 % (1.7-9.3); Neutrophils # 5.5 K/mm3 (1.8-7.8); Neutrophils % 53.6 % (37.0-80.0); Platelet Count 264 K/mm3 (142-424); Red Blood Count 4.93 M/mm3 (4.60-6.20); Red Cell Distribution Width 14.6 % (11.5-17.5); White Blood Count 10.2 K/mm3 (4.8-10.8)
[2024-03-26 19:32] LABS: Alanine Aminotransferase 65 U/L (12-78); Albumin Level 4.3 g/dl (3.5-5.0); Albumin/Globulin Ratio 1.6 (1.1-1.8); Alkaline Phosphatase 153 U/L (38-126); Anion Gap 11.1 mEq/L (5-15); Aspartate Amino Transferase 40 U/L (17-59); Bilirubin,Total 0.5 mg/dl (0.2-1.3); Blood Urea Nitrogen 14 mg/dl (9-20); Calcium 9.8 mg/dl (8.4-10.2); Carbon Dioxide 29 mmol/L (22.0-30.0); Chloride 103 mmol/L (98-107); Chol/HDL Ratio 6.9 (1-3.5); Cholesterol 261 mg/dl (140-200); Estimated Glomerular Filt Rate 81 ml/min (>60); GFR (African American) 98 ML/MIN (>60); Globulin 2.7 g/dL (1.3-3.2); Glucose 150 mg/dl (74-100); HDL Cholesterol 38 mg/dl (40-60); Potassium 4.1 mmoL/L (3.5-5.1); Sodium 139 mmol/L (136-145); Triglycerides 346 mg/dl (30-150); VLDL Cholesterol 69 mg/dL (0-40)
[2024-03-26 19:42] LABS: Direct LDL Cholesterol 160.75 mg/dL (100-129)
== END 2024-03-26 23:59 | disposition home or self-care (01) ==
LOC: LAB.DROPOF 03-27 09:12
PROVIDERS: PCP Family Medicine; Visit Provider Family Medicine
DX: E11.9 Type 2 diabetes mellitus without complications (principal); Z79.84 Long term (current) use of oral hypoglycemic drugs
CPT/HCPCS: 80053; 80061; 84443; 85025

== ENCOUNTER 2024-08-07 10:07 | Outpatient (CLI) | payer MEDICARE, SELFPAY ==
[2024-08-07 21:59] LABS: Alanine Aminotransferase 57 U/L (12-78); Albumin Level 4.5 g/dl (3.5-5.0); Albumin/Globulin Ratio 1.4 (1.1-1.8); Alkaline Phosphatase 158 U/L (38-126); Anion Gap 16.1 mEq/L (5-15); Aspartate Amino Transferase 35 U/L (17-59); Bilirubin,Total 0.7 mg/dl (0.2-1.3); Blood Urea Nitrogen 20 mg/dl (9-20); Carbon Dioxide 19 mmol/L (22.0-30.0); Chloride 105 mmol/L (98-107); Chol/HDL Ratio 4.5 (1-3.5); Cholesterol 196 mg/dl (140-200); Estimated Glomerular Filt Rate 92 ml/min (>60); GFR (African American) 111 ML/MIN (>60); Globulin 3.3 g/dL (1.3-3.2); Glucose 201 mg/dl (74-100); HDL Cholesterol 44 mg/dl (40-60); Potassium 4.1 mmoL/L (3.5-5.1); Sodium 136 mmol/L (136-145); Total Protein,Serum 7.8 g/dl (6.3-8.2); Triglycerides 166 mg/dl (30-150); VLDL Cholesterol 33 mg/dL (0-40)
[2024-08-07 22:10] LABS: Direct LDL Cholesterol 124.27 mg/dL (100-129)
== END 2024-08-07 23:59 | disposition home or self-care (01) ==
LOC: LAB.DROPOF 08-08 13:26
PROVIDERS: PCP Family Medicine; Visit Provider Family Medicine
DX: E11.9 Type 2 diabetes mellitus without complications (principal); Z79.4 Long term (current) use of insulin
CPT/HCPCS: 80053; 80061; 86140

== ENCOUNTER 2024-09-04 10:00 | Outpatient (CLI) | payer MEDICARE, SELFPAY ==
[2024-09-04 18:53] LABS: Erythrocyte Sedimentation Rate 5 mm/hr (0-15)
[2024-09-04 19:07] LABS: Uric Acid 3.6 mg/dl (3.5-8.5)
[2024-09-04 19:16] LABS: Hemoglobin A1C 7.3 % (4.0-6.0)
[2024-09-04 19:33] LABS: Prostate Specific Ag Screen 0.6 ng/ml (0.0-4.0)
[2024-09-06 10:23] LABS: RA Latex Turbid. <10.0 IU/mL (<14.0)
[2024-09-08 11:14] LABS: Antinuclear Antibodies, IFA Negative (.)
== END 2024-09-04 23:59 | disposition home or self-care (01) ==
LOC: LAB.DROPOF 09-05 09:41
PROVIDERS: PCP Family Medicine; Visit Provider Family Medicine
DX: E11.9 Type 2 diabetes mellitus without complications (principal); M54.16 Radiculopathy, lumbar region; Z12.5 Encounter for screening for malignant neoplasm of prostate; E78.2 Mixed hyperlipidemia; I10 Essential (primary) hypertension; M54.2 Cervicalgia; F43.10 Post-traumatic stress disorder, unspecified; K76.0 Fatty (change of) liver, not elsewhere classified; M54.50 Low back pain, unspecified
CPT/HCPCS: 83036; 84550; 85651; 86038; 86431; G0103

== ENCOUNTER 2024-11-14 14:20 | Outpatient (CLI) | payer MEDICARE, SELFPAY ==
[2024-11-17 11:23] LABS: Testosterone,Total 218 ng/dL (264-916)
== END 2024-11-14 23:59 | disposition home or self-care (01) ==
LOC: LAB.DROPOF 11-17 12:10
PROVIDERS: PCP Family Medicine; Visit Provider Family Medicine
DX: E29.1 Testicular hypofunction (principal)
CPT/HCPCS: 84403

== ENCOUNTER 2024-12-24 11:54 | Outpatient (CLI) | payer MEDICARE, SELFPAY ==
--- NOTE | 2024-12-24 11:56 | CT_ITS ---
APPROVED REPORT Mass Communications Professor: CLINICAL INDICATION Chest Pain TECHNIQUE Image Acquisition: A 128 slice MDCT scanner ([employer] View) was used for data acquisition. A noncontrast coronary calcium scan was performed. A CT attenuation threshold of 130 Hounsfield units (HU) was used for the detection of calcium in contiguous voxels of 1 sq mm in area to be counted as individual lesions. Bolus tracking in the ascending aorta with a threshold of 180 HU was performed. Immediately afterwards, ECG synchronized cardiac CT was then performed from the cardiac base to apex using retrospective gating with ECG tube current modulation. A total of 85 mL of Isovue 370 mg/mL contrast medium was administered at 5 mL/sec followed by a saline flush using a biphasic injection protocol. A tube voltage of 120 KVp was used. The patient received the following medications prior to the cardiac CT. 15 mg of oral ivabradine 0.8 mg of sublingual nitroglycerin The average heart rate at the time of acquisition was 76 bpm and regular. Image Reconstruction Transaxial images were reconstructed at 0.67 mm slide thickness. Data was reviewed interactively on an advanced workstation capable of 2 and 3-dimensional displays in all conventional reconstruction formats, including multiplanar reformations, maximum intensity projections, curved multiplanar reformations, and volume rendered reconstructions. When applicable, selected routine images describing the relevant coronary anatomy and pathology were saved and sent to PACS. Complications None Technical Quality Overall image quality was good. Coronary artery opacification was adequate. Total DLP (Dose-Length Product) is 1782.5 mGy-cm. The reported value represents the total of one or more individual components during the CT acquisition of this date and at this time, and as such, the same value may appear in more than one CT report depending on the interpreting/reporting physicians. COMPARISON None FINDINGS CT Coronary Calcium Scoring LMA (Left Main Artery) = 0 LAD (Left Anterior Descending) = 0 LCX (Left Coronary Circumflex) = 0 RCA (Right Coronary Artery) = 0 Total Calcium Score = 0 using the AJ-130 method. The interpretation of the calcium heart score is based on the following continuum*: 0 = no calcified plaque detected (risk of coronary artery disease is very low ??? less than 5%) 1-10 = calcium detected in extremely minimal levels (risk of coronary diseases is still low ??? less than 10%) 11-100 = mild levels of plaque detected with certainty (mild or minimal narrowing of heart arteries is likely) 101-400 = definite,at least moderate levels of plaque detected (relatively high risk of a heart attack within 3-5 years) >401-999 = extensive levels of plaque detected (high risk of heart attack, high levels of vascular disease are present, high likelihood of at least one significant coronary narrowing) *The calcium heart score quantifies the burden of coronary calcification/plaque in the coronary arteries. The calcium heart score is not able to evaluate the presence or burden of non-calcified (i.e. soft) plaque. There is no identifiable calcification in the aortic valve, mitral annulus or mitral valve, pericardium, or myocardium. Coronary CT Angiography The coronary arterial system is right dominant. Quantitative Stenosis Grading: Left Main (LM): The left main originates normally from the left sinus of Valsalva. The LM bifurcates into the left anterior descending artery and left circumflex artery. The LM is patent with no evidence of atherosclerosis. Left Anterior Descending (LAD) and Diagonal Branches: The LAD gives off 3 diagonal branch(es). The LAD and its branches are patent with no evidence of atherosclerosis. There is no evidence of LAD-myocardial bridge. Left Circumflex (LCX) and Obtuse Marginals (OM): The LCX gives off 2 Obtuse Marginal (OM) branch(es). The LCX and its branches are patent with no evidence of atherosclerosis. Right Coronary Artery (RCA): The RCA originates normally from the right sinus of Valsalva. The RCA gives off a posterior descending artery (PDA) and posterolateral (PL) branches. The RCA and its branches are patent with no evidence of atherosclerosis. Non-Coronary Cardiac Findings: Analysis of the left ventricular (LV) structure and function was performed after 3-D reconstruction of the LV from axial images, with user-corrected automatic contouring for assessment of LV volumes and user-defined reconstruction from oblique planes for measurement of 3-D cardiac structure and function. -The left ventricle systolic function is normal. -There is no left atrial appendage filling defect. Two right pulmonary veins and two left pulmonary veins drain normally into the left atrium. -No pericardial thickening or calcification. -Central and branch pulmonary arteries in the [id number] are unremarkable. -Thoracic aorta within the visualized thoracic aortic-branches in the [id number] is unremarkable. Extracardiac Structures No significant extra-cardiac findings. Note, however, that this study is focused on the cardiac findings. IMPRESSION -Absence of coronary calcification with an Agatston score = 0 using the AJ-130 method. -No evidence of significant flow-limiting atherosclerosis of the coronary arteries. -CAD-RADS 0. Management recommendations per ACC/AHA guidelines*, as clinically appropriate. *Recommendations: CAD RADS 0: Reassurance. Consider non-atherosclerotic causes of chest pain. CAD RADS 1: Consider non-atherosclerotic causes of chest pain. Consider preventive therapy and risk factor modification. CAD RADS 2: Consider non-atherosclerotic causes of chest pain. Consider preventive therapy and risk factor modification, particularly for patients with nonobstructive plaque in multiple segments. CAD RADS 3: Consider further functional testing. Consider symptom-guided anti-ischemic and preventive pharmacotherapy as well as risk factor modification per published guideline statements. CAD RADS 4A: Consider further functional testing or invasive coronary angiography with revascularization per published guideline statements. Consider symptom-guided anti-ischemic and preventive pharmacotherapy as well as risk factor modification per published guideline statements. CAD RADS 4B: Invasive coronary angiography recommended with revascularization per published guideline statements. Consider symptom-guided anti-ischemic and preventive pharmacotherapy as well as risk factor modification per published guideline statements. CAD RADS 5: Consider invasive angiography and/or viability assessment with revascularization per published guideline statements. Consider symptom-guided anti-ischemic and preventive pharmacotherapy as well as risk factor modification per published guideline statements. CRITICAL RESULT None COMMUNICATION Per this written report The coronary and cardiac findings of this CCTA were reviewed, reported, and signed by Juan Sullivan MD (Bi Technical Lead) Conclusion Electronically signed by : Christy Sullivan MD 12/25/2024 12:47:44
[2024-12-24 12:10] VITALS: BMI 35.1
[2024-12-24] MEDS: IVABRADINE HCL 7.5MG TABLET *IVABRADINE+METOPROLOL REGIMINE 15 MG PO (12:30)
[2024-12-24 12:33] VITALS: BP 126/78; PULSE 82; RESP 18; TEMP 36.5; O2SAT 96
[2024-12-24 12:43] LABS: Chloride 101 mmol/L (98-107); Sodium 138 mmol/L (136-145)
[2024-12-24 12:44] LABS: Potassium 3.2 mmoL/L (3.5-5.1)
[2024-12-24 12:47] LABS: Anion Gap 14.2 mEq/L (5-15); Blood Urea Nitrogen 13 mg/dl (9-20); Calcium 9.2 mg/dl (8.4-10.2); Carbon Dioxide 26 mmol/L (22.0-30.0); Creatinine Clearance Estimated 168 mL/min (50-200); Estimated Glomerular Filt Rate 91 ml/min (>60); GFR (African American) 110 ML/MIN (>60); Glucose 176 mg/dl (74-100)
[2024-12-24 13:30] VITALS: BP 152/98; PULSE 72; RESP 18; O2SAT 95
[2024-12-24] MEDS: NITROGLYCERIN 0.4MG SL TABLET 0.8 MG SL (13:30)
[2024-12-24 13:35] VITALS: BP 118/67; PULSE 82; RESP 18; O2SAT 97
[2024-12-24 13:40] VITALS: BP 116/64; PULSE 73; RESP 18; O2SAT 92
[2024-12-24] MEDS: IOPAMIDOL-370 (76%);100ML BOTTLE 85 ML IV (13:46)
[2024-12-24] MEDS: 0.9 % SODIUM CHLORIDE 50 ML VIAL IV (13:46)
[2024-12-24] MEDS: SODIUM CHLORIDE 0.9% 10ML SYR (RAD ONLY) 10 ML IV (13:46)
== END 2024-12-24 23:59 | disposition home or self-care (01) ==
PROVIDERS: PCP Family Medicine; Visit Provider Family Medicine
DX: R07.9 Chest pain, unspecified (principal)
CPT/HCPCS: 75574; 80048; Q9967

== ENCOUNTER 2025-04-13 10:00 | Outpatient (CLI) | payer MEDICARE, SELFPAY ==
[2025-04-13 18:54] LABS: Basophils # 0.1 K/mm3 (0-0.2); Eosinophils # 0.5 Kmm3 (0.0-0.4); Eosinophils % 4.7 % (0.1-12.0); Hematocrit 49.4 % (42.0-52.0); Hemoglobin 17.4 g/dL (14.1-18.0); Immature Granulocytes # 0.02 10^3uL; Immature Granulocytes % 0.2 %; Lymphocytes # 3.8 K/mm3 (0.7-4.5); Lymphocytes % 38.9 % (10-50); Mean Corpuscular HGB Conc 35.2 g/dL (31.8-35.4); Mean Corpuscular Hemoglobin 30.9 pg (27.0-31.2); Mean Corpuscular Volume 87.6 fl (80-94); Mean Platelet Volume 11.3 fl (7.4-10.4); Monocytes # 0.8 K/mm3 (0.1-1.0); Monocytes % 8.5 % (1.7-9.3); Neutrophils # 4.5 K/mm3 (1.8-7.8); Neutrophils % 46.7 % (37.0-80.0); Nucleated Red Blood Cells # 0 10^3/uL; Nucleated Red Blood Cells % 0 %; Platelet Count 242 K/mm3 (142-424); Red Blood Count 5.64 M/mm3 (4.60-6.20); Red Cell Distribution Width 12.7 % (11.5-17.5); Red Cell Distribution Width-SD 40.7 fL; White Blood Count 9.7 K/mm3 (4.8-10.8)
[2025-04-13 20:43] LABS: Albumin Level 4.5 g/dl (3.5-5.0); Chloride 102 mmol/L (98-107); Potassium 4.1 mmoL/L (3.5-5.1); Sodium 134 mmol/L (136-145)
[2025-04-13 20:45] LABS: Alanine Aminotransferase 54 U/L (12-78); Aspartate Amino Transferase 42 U/L (17-59); Blood Urea Nitrogen 22 mg/dl (9-20); Estimated Glomerular Filt Rate 81 ml/min (>60); GFR (African American) 98 ML/MIN (>60)
[2025-04-13 20:46] LABS: Albumin/Globulin Ratio 1.7 (1.1-1.8); Alkaline Phosphatase 151 U/L (38-126); Anion Gap 14.1 mEq/L (5-15); Bilirubin,Total 0.7 mg/dl (0.2-1.3); Calcium 9.4 mg/dl (8.4-10.2); Carbon Dioxide 22 mmol/L (22.0-30.0); Chol/HDL Ratio 5.5 (1-3.5); Cholesterol 170 mg/dl (140-200); Globulin 2.6 g/dL (1.3-3.2); Glucose 291 mg/dl (74-100); HDL Cholesterol 31 mg/dl (40-60); Total Protein,Serum 7.1 g/dl (6.3-8.2); Triglycerides 342 mg/dl (30-150); VLDL Cholesterol 68 mg/dL (0-40)
[2025-04-13 21:05] LABS: Direct LDL Cholesterol 92.13 mg/dL (100-129)
== END 2025-04-13 23:59 | disposition home or self-care (01) ==
LOC: LAB.DROPOF 20:46
PROVIDERS: PCP Family Medicine; Visit Provider Family Medicine
DX: I10 Essential (primary) hypertension (principal); E11.9 Type 2 diabetes mellitus without complications; Z87.891 Personal history of nicotine dependence; Z79.84 Long term (current) use of oral hypoglycemic drugs; Z79.4 Long term (current) use of insulin
CPT/HCPCS: 80053; 80061; 84403; 85025

== ENCOUNTER 2025-06-24 10:00 | Outpatient (CLI) | payer MEDICARE, SELFPAY ==
[2025-06-24 16:00] LABS: Alanine Aminotransferase 80 U/L (12-78); Albumin Level 4.5 g/dl (3.5-5.0); Albumin/Globulin Ratio 1.8 (1.1-1.8); Alkaline Phosphatase 235 U/L (38-126); Anion Gap 15.0 mEq/L (5-15); Aspartate Amino Transferase 64 U/L (17-59); Bilirubin,Total 1.1 mg/dl (0.2-1.3); Blood Urea Nitrogen 12 mg/dl (9-20); Calcium 10.0 mg/dl (8.4-10.2); Carbon Dioxide 23 mmol/L (22.0-30.0); Chloride 102 mmol/L (98-107); Cholesterol 178 mg/dl (140-200); Creatinine,Serum 0.80 mg/dl (0.66-1.25); Estimated Glomerular Filt Rate 105 ml/min (>60); GFR (African American) 126 ML/MIN (>60); Globulin 2.5 g/dL (1.3-3.2); Glucose 364 mg/dl (74-100); HDL Cholesterol 28 mg/dl (40-60); Potassium 4.0 mmoL/L (3.5-5.1); Sodium 136 mmol/L (136-145); Total Protein,Serum 7.0 g/dl (6.3-8.2); Triglycerides 374 mg/dl (30-150)
[2025-06-24 16:49] LABS: Hepatitis C Ab Qual. W/ RFX NEGATIVE (Negative)
[2025-06-25 04:24] LABS: Testosterone,Total 117 ng/dL (264-916)
[2025-06-25 05:15] LABS: Hepatitis B Surface Antigen Negative (Negative)
--- OUTSIDE RECORDS SUMMARY | 2025-06-25 12:48 | XMS_ITS | CCD ---
Author Organization Unknown Care Team Providers Care Milk Bottler Name Role Phone Unavailable Primary Care Provider Unavailabl e Unavailable Chronic Care Management Unavaila ble Summary Purpose DataExchange Insurance Providers Payer name Policy type / Coverage type Covered green party ID Effective Begin Date Effective End Date [facility] [id number] Unknown Unknown Family History Family History data not found Medication Administered No Medication Administered data Reason For Visit No Reason For Visit data Medical Equipment No Medical Equipment data Advance Directives No Advance Directive data
--- OUTSIDE RECORDS SUMMARY | 2025-06-25 12:49 | XMS_ITS | CCD ---
Author Organization Unknown Care Team Providers Care Beautician Apprentice Name Role Phone Unavailable Primary Care Provider Unavailabl e Unavailable Chronic Care Management Unavaila ble Summary Purpose DataExchange Insurance Providers Payer name Policy type / Coverage type Covered libertarian ID Effective Begin Date Effective End Date [facility] [id number] Unknown Unknown Family History Family History data not found Medication Administered No Medication Administered data Reason For Visit No Reason For Visit data Medical Equipment No Medical Equipment data Advance Directives No Advance Directive data
== END 2025-06-24 23:59 | disposition home or self-care (01) ==
LOC: LAB.DROPOF 06-25 11:46
PROVIDERS: PCP Family Medicine; Visit Provider Family Medicine
DX: E29.1 Testicular hypofunction (principal); E11.9 Type 2 diabetes mellitus without complications; Z11.59 Encounter for screening for other viral diseases
CPT/HCPCS: 80053; 80061; 82043; 82570; 84403; 86803; 87340; 87389

== ENCOUNTER 2025-09-23 09:30 | Outpatient (CLI) | payer MEDICARE, SELFPAY ==
[2025-09-23 18:35] LABS: Hematocrit 46.4 % (42.0-52.0); Hemoglobin 15.9 g/dL (14.1-18.0); Immature Granulocytes % 0.3 %; Mean Corpuscular HGB Conc 34.3 g/dL (31.8-35.4); Mean Corpuscular Hemoglobin 30.9 pg (27.0-31.2); Mean Corpuscular Volume 90.1 fl (80-94); Nucleated Red Blood Cells % 0 %; Platelet Count 209 K/mm3 (142-424); Red Blood Count 5.15 M/mm3 (4.60-6.20); Red Cell Distribution Width-SD 42.4 fL; White Blood Count 10.1 K/mm3 (4.8-10.8)
[2025-09-23 19:31] LABS: Alanine Aminotransferase 67 U/L (12-78); Albumin Level 3.4 g/dl (3.5-5.0); Albumin/Globulin Ratio 0.9 (1.1-1.8); Alkaline Phosphatase 193 U/L (38-126); Anion Gap 13.5 mEq/L (5-15); Aspartate Amino Transferase 49 U/L (17-59); Bilirubin,Total 0.9 mg/dl (0.2-1.3); Blood Urea Nitrogen 16 mg/dl (9-20); Calcium 9.3 mg/dl (8.4-10.2); Carbon Dioxide 24 mmol/L (22.0-30.0); Chloride 102 mmol/L (98-107); Cholesterol 155 mg/dl (140-200); Creatinine,Serum 1.00 mg/dl (0.66-1.25); Estimated Glomerular Filt Rate 80 ml/min (>60); GFR (African American) 97 ML/MIN (>60); Globulin 3.9 g/dL (1.3-3.2); Glucose 200 mg/dl (74-100); HDL Cholesterol 28 mg/dl (40-60); Potassium 3.5 mmoL/L (3.5-5.1); Sodium 136 mmol/L (136-145); Total Protein,Serum 7.3 g/dl (6.3-8.2); Triglycerides 292 mg/dl (30-150)
--- OUTSIDE RECORDS SUMMARY | 2025-09-24 13:41 | XMS_ITS | Continuity of Care Document ---
Author Organization [facility] Address [address] [place] [phone] Care Team Providers Care Manager Customer Name Role Phone ARUNA SOTO Primary Care Provider [phone] Assessment Encounter Date Assessment Date Assessment LastModified by Organization Details LastModified Time 09/14/2025 09/14/2025 Medication compliance: According to patient medications are working well. Patient denies any side effects to medications prescribed. There are no signs of tolerance. Pattern of medication use is as previously prescribed. The patient states he/she is taking his/her medications as prescribed. He/She still has symptoms on a continuous basis, but they are alleviated somewhat by current meds. He/She understands that his/her symptoms will not be completely eliminated by medications. The patient has been instructed as to the type of medication prescribed along with directions for use. Potential side effects have been discussed, along with risks and benefits of taking this medication. He/She was instructed what to do if he/she experiences side effects, including when to discontinue the medication and was advised to call this office in this event. Prescription refills: Medications refilled for 2 months with no changes. Global Risk Assessment Score: HIGH Risk. High Risk Assessment: Multiple Opioid Medication Medication Regimen (>2 controlled substances) High Doses of Opioids to Manage Pain (>30 mg Morphine or equivalent) Abnormal UDMs (including presence of licit/illicit meds not prescribed Abnormal PC/DS Abnormal PDMP Physical symptoms suggesting substance abuse-misuse at OV's Behavioral/psy chological symptoms suggesting substance abuse-misuse at OV's History of legal or illegal substance use including treatments for abuse or dependence Personal History of alcoholism, illicit drug abuse/diversio n, ALC abuse/physical abuse Moderate Risk Assessment: Multiple Pain or Medical Conditions (i.e., back, head and fibromyalgia) Multiple Physicians treating patient's conditions History of early refills History of previous pain clinics History of legal or illegal substance use by first degree relatives, including treatments for abuse or dependence History/Diagno sis of Mental Health/Psychia tric illnesses that may impact the patient's treatment with controlled substances History/Diagno sis of Mental Health/Psychia tric illnesses that may impact the patient's treatment with controlled substances Non [place] resident Difficulty in contacting the patient ( i.e. multiple residences, multiple phone numbers/no phone, frequent out of town travel/out-of- state work) Lab work reviewed: UDS of 8.22.25 reviewed and is Appropriate . ABRAHAM (prescription drug monitoring report): not in chart Not available 09/14/2025 08:40:36 Plan of Treatment Reminders Order Date Submit Date Provider Last Modified By Organization Details Last Modified Time Details Appointments Office Visit1 5 2024 08:30A Rajat Castaneda APRN Not available Not available Not available OV Ext 30 2025 08:00A M Cheng Leong MD Not available Not available Not available Lab drug screen , urine - Meds: OXYCOD ONE XANAX RVM 2024 025 JENNIFER Alvarez MD [facility] (In House Lab), [facility] [place], [address], 09/24/2025 06:44:43 Referral None record ed. Procedures None record ed. Surgeries None record ed. Imaging None record ed. Medication Orders None record ed. Patient TargetsNo targets recorded. Patient Instructions Encounter Date Encounter Id Patient Instructions Last Modified By Organization Details Last Modified Time 09/14/2025 [id number] 1. Continue current medications 2. Encourage light activity with rest breaks 3. Encourage moist heat, ice, acupuncture, chiropractor, etc. 4. Call with any issues Not available 09/13/2025 14:11:39 Patient seen today incident to a physician s previously established diagnosis and plan of care. Follow-up care provided today under the plan of care of: Mg Shahid MD and supervision of: Sharon Campo MD. Not available 09/14/2025 08:42:10 Reason for Referral None Reported. Results Created Date Observation Date Name Description Value Unit Range Abnormal Flag Note LastModifiedBy Organization Detail LastModifiedTime 09/14/2009/14/2025 OXYCO DONE abnormal status abnormal Not Available Hiro Alvarez MD [facility] (In House Lab) [address] [place] [address], [id number], 09/24/2025 06:44:44 09/14/2009/14/2025 OXYCO DONE abnormal status high Not Available Hiro Alvarez MD [facility] (In House Lab) [address] [place] [address], [id number], 09/24/2025 06:44:44 09/14/20 25 09/24/2025 OXYCO DONE DEFIN ITIVE PANEL -LC/M S oxycodone 2649.2 NG/mL <75.0 abnormal Not Available Nguyen Alvarez MD [facility] (In House Lab) [address] [place] [address], [id number], 09/24/2025 06:44:44 09/14/20 25 09/24/2025 OXYCO DONE DEFIN ITIVE PANEL -LC/M S noroxycodone 1594.4 NG/mL <75.0 abnormal Not Available Mane Alvarez MD [facility] (In House Lab) [address] [place] [address], [id number], 09/24/2025 06:44:44 09/14/20 25 09/24/2025 OXYCO DONE DEFIN ITIVE PANEL -LC/M S oxymorphone 229.4 NG/mL <75.0 abnormal Not Available Jagjit Alvarez MD [facility] (In House Lab) [address] [place] [address], [id number], 09/24/2025 06:44:44 09/14/20 25 09/24/2025 BENZO DIAZE PINE DEFIN ITIVE PANEL - LC/MS alprazolam 73.3 NG/mL <75.0 Not Available Nguyen Alvarez MD [facility] (In House Lab) [address] [place] [address], [id number], 09/24/2025 06:44:43 09/14/2009/24/2025 BENZO DIAZE PINE DEFIN ITIVE PANEL - LC/MS A-hydroxyalp razolam 92.8 NG/mL <75.0 abnormal Not Available Hiro Alvarez MD [facility] (In House Lab) [address] [place] [address], [id number], 09/24/2025 06:44:43 09/14/20 25 09/24/2025 BENZO DIAZE PINE DEFIN ITIVE PANEL - LC/MS clonazepam 0 NG/mL <75.0 Not Available Nguyen Alvarez MD [facility] (In House Lab) [address] [place] [address], [id number], 09/24/2025 06:44:43 09/14/2009/24/2025 BENZO DIAZE PINE DEFIN ITIVE PANEL - LC/MS 7-aminoclona zepam 0 NG/mL <75.0 Not Available Hiro Alvaerz MD [facility] (In House Lab) [address] [place] [address], [id number], 09/24/2025 06:44:43 09/14/20 25 09/24/2025 BENZO DIAZE PINE DEFIN ITIVE PANEL - LC/MS diazepam 0 NG/mL <75.0 Not Available Nguyen Alvarez MD [facility] (In House Lab) [address] [place] [address], [id number], 09/24/2025 06:44:43 09/14/20 25 09/24/2025 BENZO DIAZE [place]INE DEFIN ITIVE PANEL - LC/MS oxazepam 0 NG/mL <75.0 Not Available Nguyen Alvarez MD [facility] (In House Lab) [address] [place] [address], [id number], 09/24/2025 06:44:43 09/14/20 25 09/24/2025 BENZO DIAZE [place]INE DEFIN ITIVE PANEL - LC/MS temazepam 0 NG/mL <75.0 Not Available Nguyen Alvarez MD [facility] (In House Lab) [address] [place] [address], [id number], 09/24/2025 06:44:43 09/14/2009/24/2025 BENZO DIAZE PINE DEFIN ITIVE PANEL - LC/MS lorazepam 0 NG/mL <75.0 Not Available Nguyen Alvarez MD [facility] (In House Lab) [address] [place] [address], [id number], 09/24/2025 06:44:43 09/14/20 25 09/14/2025 D-PRE SUMPT ASAEL URINE DRUG REPOR T amphetamine NEGATI VE NG/mL <1000. 0 Not Available Nguyen Alvarez MD [facility] (In House Lab) [address] [place] [address], [id number], 09/24/2025 06:44:43 09/14/2009/14/2025 D-PRE SUMPT ASAEL URINE DRUG REPOR T benzodiazepi ne >991.3 NG/mL <200.0 high Curre nt metho d may not detec t low level s of [place] pin Not Available Nguyen Alvarez MD [facility] (In House Lab) [address] [place] [address], [id number], 09/24/2025 06:44:43 09/14/20 25 09/14/2025 D-PRE SUMPT ASAEL URINE DRUG REPOR T buprenorphin e NEGATI VE NG/mL <10.0 Not Available Nguyen Alvarez MD [facility] (In House Lab) [address] [place] [address], [id number], 09/24/2025 06:44:43 09/14/20 25 09/14/2025 D-PRE SUMPT ASAEL URINE DRUG REPOR T cannabinoid NEGATI VE NG/mL <50.0 Not Available Nguyen Alvarez MD [facility] (In House Lab) [address] [place] [address], [address], 09/24/2025 06:44:43 09/14/20 25 09/14/2025 D-PRE SUMPT ASAEL URINE DRUG REPOR T cocaine NEGATI VE NG/mL <300.0 Not Available Nguyen Alvarez MD [facility] (In House Lab) [address] [place] [address], [id number], 09/24/2025 06:44:43 09/14/20 25 09/14/2025 D-PRE SUMPT ASAEL URINE DRUG REPOR T ethanol NEGATI VE mg/dL <50.0 Not Available Nguyen Alvarez MD [facility] (In House Lab) [address] [place] [address], [id number], 09/24/2025 06:44:43 09/14/20 25 09/14/2025 D-PRE SUMPT ASAEL URINE DRUG REPOR T methadone 14.0 NG/mL <300.0 Not Available Nguyen Alvarez MD [facility] (In House Lab) [address] [place] [address], [id number], 09/24/2025 06:44:43 09/14/2009/14/2025 D-PRE SUMPT ASAEL URINE DRUG REPOR T opiates 19.0 NG/mL <300.0 Opiat es inclu georges Codei ne,Mo rphin e, [place] morph one,H ydroc odone Not Available Nguyen Alvarez MD [facility] (In House Lab) [address] [place] [address], [id number], 09/24/2025 06:44:43 09/14/20 25 09/14/2025 D-PRE SUMPT ASAEL URINE DRUG REPOR T oxycodone >793 NG/mL <300.0 high Not Available Nguyen Alvarez MD [facility] (In House Lab) [address] [place] [address], [id number], 09/24/2025 06:44:43 09/14/2009/14/2025 D-PRE SUMPT ASAEL URINE DRUG REPOR T urine creatinine (validity test) 62.7 mg/dL 20.0 - 300.0 Not Available Nguyen Alvarez MD [facility] (In House Lab) [address] [place] [address], [id number], 09/24/2025 06:44:43 Result Notes None recorded. Problems Name Problem SNOMED Code Status Onset Date Resolution Date Notes Provider Name and Address Organization Details Recorded Time Degeneration of intervertebral disc of lumbar region with discogenic back pain 96208961 Active 2024 MG SHAHID MD [address] [facility], [place], [address], [facility] 5 10:13:33 Notes:Some problems listed i n Documents: #[id number], #[id number], #[id number] could not be added to this patient's chart. Please review these documents and add these problems to the patient's chart manually as needed. Problem Notes None recorded. Medical Equipment None Reported. Allergies Allergen ID Allergen Name Allergen Category Reaction Reaction Severity Criticality Documentation Date Start Date Code Code System Note Provider Name and Address Organization Details Recorded Time 12787 Product containin g penicilli n (product) medicatio n hives Not available Not available 12/22/2024 69591 8001 SNOMED [facility] 09:54:49 Medications Name Sig Start Date Stop Date Status Note LastModified by Organization Details LastModified Time carisoprodo l 350 mg tablet active Not Available Not Available Not Available atorvastati n 40 mg tablet TAKE 1 TABLET BY MOUTH ONCE DAILY. active Not Available Not Available No t Available buspirone 5 mg tablet Take 1 tablet twice a day by oral route. active Not Available Not Available No t Available metformin 500 mg tablet TAKE 1 TABLET BY MOUTH TWICE DAILY. active Not Available Not Available No t Available prednisone 10 mg tablet active Not Available Not Available Not Available gabapentin 600 mg tablet active Not Available Not Available Not Available atorvastati n 20 mg tablet active Not Available Not Available Not Available torsemide 20 mg tablet TAKE 1 TABLET BY MOUTH ONCE DAILY NEEDED FOR EDEMA active Not Available Not Available No t Available hydrocodone 5 mg-acetamin ophen 325 mg tablet 09/13 completed Not Available Not Available Not Available ondansetron HCl 4 mg tablet TAKE 1 TABLET BY MOUTH 3 TIMES DAILY. active Not Available Not Available No t Available prednisone 20 mg tablet TAKE 1 TABLET BY MOUTH TWICE DAILY FOR 5 DAYS active Not Available Not Available No t Available quetiapine 200 mg tablet TAKE 1 TABLET EVERY DAY BY ORAL ROUTE AT BEDTIME. active Not Available Not Available No t Available ciprofloxac in 500 mg tablet active Not Available Not Available Not Available glimepiride 2 mg tablet TAKE 1 TABLET BY MOUTH ONCE DAILY active Not Available Not Available No t Available cyproheptad ine 4 mg tablet TAKE 1 TABLET BY MOUTH NIGHTLY AT BEDTIME FOR 14 DAYS. active Not Available Not Available No t Available oxycodone-a cetaminophe n 5 mg-325 mg tablet 09/13 completed Not Available Not Available Not Available oxycodone-a cetaminophe n 10 mg-325 mg tablet 09/13 completed Not Available Not Available Not Available tamsulosin 0.4 mg capsule TAKE 1 CAPSULE BY MOUTH ONCE DAILY. active Not Available Not Available No t Available amlodipine 10 mg tablet TAKE 1 TABLET BY MOUTH ONCE A DAY active Not Available Not Available No t Available gemfibrozil 600 mg tablet TAKE 1 TABLET BY MOUTH 2 TIMES A DAY active Not Available Not Available No t Available hydrocodone 7.5 mg-acetamin ophen 325 mg tablet TAKE ONE TABLET BY MOUTH TWICE DAILY NEEDED FOR PAIN OKAY TO FILL TODAY 09/13 completed Not Available Not Available Not Available pantoprazol e 40 mg tablet,nasreen yed release TAKE 1 TABLET BY MOUTH 2 TIMES A DAY active Not Available Not Available No t Available buspirone 10 mg tablet TAKE 1 TABLET BY MOUTH TWICE DAILY active Not Available Not Available No t Available polymyxin B sulfate 10,000 unit-trimet hoprim 1 mg/mL eye drops PLACE 1 DROP INTO THE AFFECTED EYE(S) 4 TIMES DAILY FOR 7 DAYS. active Not Available Not Available No t Available buspirone 7.5 mg tablet TAKE 1 TABLET BY MOUTH 3 TIMES DAILY. active Not Available Not Available No t Available hydroxyzine HCl 25 mg tablet TAKE 1 TABLET BY MOUTH 3 TIMES DAILY NEEDED. active Not Available Not Available No t Available alprazolam 2 mg tablet TAKE 1 TABLET BY MOUTH TWICE A DAY NEEDED FOR ANEXITY active Not Available Not Available No t Available testosteron e cypionate 200 mg/mL intramuscul ar oil INJECT 1 ML INTO THE MUSCLE EVERY 2 WEEKS. active Not Available Not Available No t Available levofloxaci n 500 mg tablet TAKE 1 TABLET BY MOUTH ONCE DAILY FOR 10 DAYS active Not Available Not Available No t Available oxycodone-a cetaminophe n 7.5 mg-325 mg tablet Take 1 tablet every 6 hours by oral route for 30 days. 2024 active Not Available Not Available Not Avai lable benazepril 40 mg tablet TAKE 1 TABLET BY MOUTH ONCE A DAY FOR HYPERTENS ION active Not Available Not Available No t Available cefdinir 300 mg capsule TAKE 1 CAPSULE BY MOUTH TWICE DAILY FOR 10 DAYS. active Not Available Not Available No t Available Ventolin HFA 90 mcg/actuati on aerosol inhaler USE 1 INHALATIO N FOUR TIMES A DAY NEEDED FOR SHORTNESS OF BREATH OR WHEEZING active Not Available Not Available No t Available buspirone 15 mg tablet TAKE 1 TABLET BY MOUTH 3 TIMES DAILY. active Not Available Not Available No t Available insulin aspart (U-100) 100 unit/mL (3 mL) subcutaneou s pen INJECT 10 UNITS UNDER THE SKIN THREE TIMES DAILY NEEDED FOR BLOOD SUGAR OVER 300 active Not Available Not Available No t Available alprazolam ER 1 mg tablet,exte nded release 24 hr Take 1 tablet every day by oral route. active Not Available Not Available No t Available rosuvastati n 40 mg tablet active Not Available Not Available Not Available duloxetine 60 mg capsule,del ayed release active Not Available Not Available Not Available benazepril active Not Available Not Av ailable Not Available amlodipine active Not Available Not Av ailable Not Available gemfibrozil active Not Available Not A vailable Not Available cyproheptad ine active Not Available Not Available Not Available nebivolol 10 mg tablet active Not Available Not Available Not Available Humalog KwikPen (U-100) Insulin 100 unit/mL subcutaneou s INJECT 10 UNITS UNDER THE SKIN 3 TIMES DAILY NEEDED FOR BLOOD SUGAR OVER 300 active Not Available Not Available No t Available testosteron e 20.25 mg/1.25 gram per pump act.(1.62 %) transdermal gel PLACE 2 PUMPS TOPICALLY ONCE DAILY. APPLY ONE PUMP AMOUNT OVER MAX AREA OF UPPER ARM AND SHOULDER DAILY. active Not Available Not Available No t Available vilazodone 40 mg tablet TAKE 1 TABLET BY MOUTH ONCE DAILY WITH A MEAL/FOOD . active Not Available Not Available No t Available vilazodone 20 mg tablet TAKE 1 TABLET BY MOUTH ONCE DAILY WITH A MEAL/FOOD . active Not Available Not Available No t Available vilazodone 10 mg tablet TAKE 1 TABLET BY MOUTH ONCE DAILY FOR 7 DAYS WITH FOOD active Not Available Not Available No t Available Combivent Respimat 20 mcg-100 mcg/actuati on solution for inhalation INHALE 1 PUFF INTO THE LUNGS 4 TIMES DAILY. SPACE EVENLY DURING WAKING HOURS active Not Available Not Available No t Available Farxiga 10 mg tablet TAKE 1 TABLET BY MOUTH ONCE DAILY active Not Available Not Available No t Available naloxone 4 mg/actuatio n nasal spray active Not Available Not Available Not Available dapaglifloz in 10 mg-saxaglip tin 5 mg tablet Take 1 tablet every day by oral route. active Not Available Not Available No t Available FreeStyle Nicolas 2 Sensor kit CHANGE 1 SENSOR EVERY 14 DAYS active Not Available Not Available No t Available FreeStyle Nicoals 2 [place] USE DIRECTED TO CHECK BLOOD SUGAR active Not Available Not Available No t Available Ozempic 1 mg/dose (4 mg/3 mL) subcutaneou s pen injector INJECT 1 MG (0.75 ML) SUBCUTANE OUSLY WEEKLY active Not Available Not Available No t Available aspirin 81 mg capsule Take 1 capsule every day by oral route. active Not Available Not Available No t Available Auvelity 45 mg-105 mg tablet, extended release TAKE 1 TABLET BY MOUTH TWICE DAILY. TAKE DOSES AT LEAST 8 HOURS APART active Not Available Not Available No t Available Ozempic 0.25 mg or 0.5 mg (2 mg/3 mL) subcutaneou s pen injector INJECT 0.25 MG UNDER THE SKIN ONCE WEEKLY. active Not Available Not Available No t Available albuterol 90 mcg-budeson kieran 80 mcg/actuati on HFA aerosol inhaler Inhale by inhalatio n route. active Not Available Not Available No t Available Marilu 2nd Gen Pen Needle 32 gauge x USE DIRECTED WITH HUMALOG PEN THREE TIMES DAILY active Not Available Not Available No t Available Vitals Date Recorded Body height Body mass index (BMI) Body weight Body temperature Heart rate Respiratory rate Systolic And Diastolic Provider Name and Address Organization Details Last Updated DateTime 5 180.34 cm 34.9 kg/m2 236468. 09 g 98.1 [degF] 86 /min 18 /min 136/96 mm[Hg] Ke[facility] 08:41:00 Social History Question Answer Notes LastModified by Organizat ion Details LastModified Time What Is The Highest Grade Or Level Of School You Have Completed Or The Highest Degree You Have Received? [id number] Information not available 12/22/2024 What Is Your Relationship Status? [email or web address] Information not available 12/22/2024 Sex: Male Functional Status None recorded. Mental Status None recorded. Family History Nothing Reported Notes:MOTHER LUNG D ISEASE, COPD EMPHYSEMA , FATHER LIVING Medical History No medical history recorded. Past Encounters Encounter ID Performer Location Encounter Start Date Encounter Closed Date Diagnosis/Indication Diagnosis SNOMED-CT Code Diagnosis ICD10 Code Diagnosis IMO Codes Diagnosis Note [id number] nAayeli Castaneda, [employer] [id number] [place] [address] 09/14/2025 08:23:51 09/14/2025 09:02:32 Degeneration of lumbar intervertebral disc 46548445 M51.360 [id number] Cervical spondylosis 387 682786 M47.812 34493 Bilateral chronic pain of upper limbs 9767137663 1847826 M25.511 M25.512 G89.29 [id number] Long-term current use of opiate analgesic drug 5988881845 33187 Z79.891 Health Concerns Section Related Observation LastModified by Organization Detai ls LastModified Time None Recorded Concern Status LastModified by Organization Details LastModified Time None Recorded Payers Encounter Date Sequence Insurance Name Policy Number Policy Russo Covered Member ID Russo Member ID Guarantor Name 09/14/[address] [facility] (MEDICARE REPLACEMENT/A DVANTAGE - HMO) [place]h [place] [id number] [place]h [place] Notes Date Note Type Note Provider Name and Address Organization Details Recorded Time 09/14/2025 text/html He is here today for a F/U on pain. Pain is constant but varies in intensity. States he has had issues w/ his shoulders for about 20 yrs now after rotator cuff tears and surgical repair.His pain is aggravated by sitting too long, over-exertion, pushing/pulling, reaching, twisting, lifting, and laying on his sides. Does what he can around the house but takes breaks as neededDenies SE to meds He had injections at the prior pain clinic in [place] and states he would get about a month of pain relief at about 50% and then it would wear off Anayeli Castaneda, [employer] [address] [facility], [place], [address], [facility] 09/15/2025 19:19:48
--- OUTSIDE RECORDS SUMMARY | 2025-09-24 13:41 | XMS_ITS | Data Portability ---
Author Organization [facility] Office Address [address] [place] [id number] Care Team Providers Care Print Journalist Name Role Phone ARUNA SOTO Primary Care Provider [phone] Assessment Encounter Date Assessment Date Assessment LastModified [...] Appointments Office Visit1 5 2024 08:30A Rajat Castaneda, PALLAVI Not available Not available Not available OV Ext 30 2025 08:00A Rajat Leong MD Not available Not available Not available Lab drug screen , urine - Meds: OXYCOD ONE XANAX RVM 2024 025 JENNIFER Alvarez MD [facility] (In House Lab), [address] [place], [address], 09/24/2025 06:44:43 drug screen , urine - Meds:o xycodo ne 2024 025 JENNIFER Alvarez MD [facility] (In House Lab), [address] [place], [address], 07/30/2025 14:03:47 drug screen , urine - Meds: oxycod one 2024 025 JENNIFER Alvarez MD [facility] (In House Lab), [address] [place], [address], 06/08/2025 15:59:43 drug screen , urine - Meds: OXYCOD ONE KEVON 2024 025 JENNIFER Alvarez MD [facility] (In House Lab), [address] [place] [address], [address], 04/13/2025 11:42:15 drug screen , urine - Meds: 2024 025 JENNIFER Alvarez MD [facility] (In House Lab), [address] [place] [address], [address], 12/24/2024 13:22:23 CMP, serum or plasma 2024 025 JENNIFER Alvarez MD [facility] (In House [facility]), [address] [place] [address], [address], 12/22/2024 14:50:52 gamma- glutam yl transf erase (ggt), serum 2024 025 JENNIFER Alvarez MD [facility] (In House [facility]), [address] [place] [address], [address], 12/22/2024 14:50:53 CBC w/ auto diff 2024 025 JENNIFER Alvarez MD [facility] (In House [facility]), [address] [place] [address], [address], 12/22/2024 14:50:52 venipu ncture 2024 025 JENNIFER Alvarez MD [facility] (In House [facility]), [address] [place] [address], [address], 12/22/2024 14:50:51 Referral None record ed. Procedures None record ed. Surgeries None record ed. Imaging None record ed. Medication Orders oxycod one-ac etamin ophen 7.5 mg-325 mg tablet 2024 025 [facility] [address] [facility] [place], [address], 07/20/2025 08:31:05 oxycod one-ac etamin ophen 7.5 mg-325 mg tablet 2024 025 [facility], [address], [place], [address], 08/20/2025 09:59:47 oxycod one-ac etamin ophen 7.5 mg-325 mg tablet 2024 025 [facility], [address], [place], [address], 05/22/2025 09:16:54 oxycod one-ac etamin ophen 7.5 mg-325 mg tablet 2024 025 [facility], [address], [place], [address], 06/19/2025 13:05:50 oxycod one-ac etamin ophen 7.5 mg-325 mg tablet 2024 025 [facility], [address], [place], [address], 03/23/2025 09:24:49 oxycod one-ac etamin ophen 7.5 mg-325 mg tablet 2024 025 [facility], [address], [place], [address], 04/22/2025 09:16:50 oxycod one-ac etamin ophen 7.5 mg-325 mg tablet 2024 025 [facility], [address], [place], [address], 01/21/2025 10:25:28 oxycod one-ac etamin ophen 7.5 mg-325 mg tablet 2024 025 [facility], [address], [place], [address], 12/22/2024 11:00:48 Patient TargetsNo targets recorded. Patient Instructions Encounter Date Encounter Id Patient Instructions Last Modified By Organization Details Last Modified Time 12/22/2024 [id number] Take medications EXACTLY as instructed. Call office for any problems DO NOT run out of medications and medications should last till next appointment. Notify office if going to be late or need to reschedule. rlingreen Not available 12/22/2024 10:03:20 03/19/2025 [id number] Take medications EXACTLY as instructed. Call office for any problems DO NOT run out of medications and medications should last till next appointment. Notify office if going to be late or need to reschedule. rlingreen Not available 03/19/2025 08:38:03 05/18/2025 [id number] Take medications EXACTLY as instructed. Call office for any problems DO NOT run out of medications and medications should last till next appointment. Notify office if going to be late or need to reschedule. rlingreen Not available 05/18/2025 08:48:40 07/17/2025 [id number] Take medications EXACTLY as instructed. Call office for any problems DO NOT run out of medications and medications should last till next appointment. Notify office if going to be late or need to reschedule. rlingreen Not available 07/17/2025 07:38:47 09/14/2025 [id number] 1. Continue current medications 2. Encourage light [...] Abnormal Flag Note LastModifiedBy Organization Detail LastModifiedTime 12/22/19 25 12/22/2024 GGT abnormal status high Not Available Hiro Alvarez MD [facility] ([facility]) [address] [place] [address], [address], 12/22/2024 14:50:53 12/22/19 25 12/22/2024 HYDRO CODON E/ ACETA MINOP HEN abnormal status abnormal Not Available Hiro Alvarez MD [facility] ([facility]) [address] [place] [address], [address], 12/24/2024 13:22:24 12/22/19 25 12/22/2024 HYDRO CODON E/ ACETA MINOP HEN abnormal status high Not Available Hiro Alvarez MD [facility] ([facility]) [address] [place] [address], [address], 12/24/2024 13:22:24 12/22/19 25 12/24/2024 OPIAT E DEFIN ITIVE PANEL LC/MS codeine 0.0 NG/mL <75.0 Not Available Nguyen Alvarez MD [facility] ([facility]) [address] [place] [address], [address], 12/24/2024 13:22:24 12/22/19 25 12/24/2024 OPIAT E DEFIN ITIVE PANEL LC/MS morphine 0 NG/mL <75.0 Not Available Nguyen Alvarez MD [facility] ([facility]) [address] [place] [address], [address], 12/24/2024 13:22:24 12/22/19 25 12/24/2024 OPIAT E DEFIN ITIVE PANEL LC/MS 6-JOSE 0 NG/mL <15.0 Not Available Nguyen Alvarez MD [facility] ([facility]) [address] [place] [address], [address], 12/24/2024 13:22:24 12/22/19 25 12/24/2024 OPIAT E DEFIN ITIVE PANEL LC/MS hydromorphon e 157.9 NG/mL <75.0 abnormal Not Available Hiro Alvarez MD [facility] ([facility]) [address] [place] [address], [address], 12/24/2024 13:22:24 12/22/19 25 12/24/2024 OPIAT E DEFIN ITIVE PANEL LC/MS hydrocodone 1365.1 NG/mL <75.0 abnormal Not Available Jagjit Alvarez MD [facility] (In [facility]) [address] [place], [address], 12/24/2024 13:22:24 12/22/19 25 12/24/2024 OPIAT E DEFIN ITIVE PANEL LC/MS norhydrocodo ne 817.8 NG/mL <75.0 abnormal Not Available Hiro Alvarez MD [facility] ([facility]) [address] [place] [address], [address], 12/24/2024 13:22:24 12/22/19 25 12/24/2024 BENZO DIAZE PINE DEFIN ITIVE PANEL - LC/MS alprazolam 152.2 NG/mL <75.0 abnormal Not Available Hiro Alvarez MD [facility] ([facility]) [address] [place] [address], [address], 12/24/2024 13:22:23 12/22/19 25 12/24/2024 BENZO DIAZE PINE DEFIN ITIVE PANEL - LC/MS A-hydroxyalp razolam 226.3 NG/mL <75.0 abnormal Not Available Hiro Alvarez MD [facility] ([facility]) [address] [place] [address], [address], 12/24/2024 13:22:23 12/22/19 25 12/24/2024 BENZO DIAZE PINE DEFIN ITIVE PANEL - LC/MS clonazepam 0 NG/mL <75.0 Not Available Nguyen Alvarez MD [facility] ([facility]) [address] [place] [address], [address], 12/24/2024 13:22:23 12/22/19 25 12/24/2024 BENZO DIAZE PINE DEFIN ITIVE PANEL - LC/MS 7-aminoclona zepam 0 NG/mL <75.0 Not Available Hiro Alvarez MD [facility] ([facility] House Lab) [address] [place], [address], 12/24/2024 13:22:23 12/22/19 25 12/24/2024 BENZO DIAZE PINE DEFIN ITIVE PANEL - LC/MS diazepam 0 NG/mL <75.0 Not Available Nguyen Alvarez MD [facility] ([facility]) [address] [place] [address], [address], 12/24/2024 13:22:23 12/22/19 25 12/24/2024 BENZO DIAZE PINE DEFIN ITIVE PANEL - LC/MS oxazepam 0 NG/mL <75.0 Not Available Nguyen Alvarez MD [facility] ([facility]) [address] [place] [address], [address], 12/24/2024 13:22:23 12/22/19 25 12/24/2024 BENZO DIAZE PINE DEFIN ITIVE PANEL - LC/MS temazepam 0 NG/mL <75.0 Not Available Nguyen Alvarez MD [facility] ([facility]) [address] [place] [address], [address], 12/24/2024 13:22:23 12/22/19 25 12/24/2024 BENZO DIAZE PINE DEFIN ITIVE PANEL - LC/MS lorazepam 0 NG/mL <75.0 Not Available Nguyen Alvarez MD [facility] ([facility]) [address] [place] [address], [address], 12/24/2024 13:22:23 12/22/19 25 12/22/2024 D-PRE SUMPT ASAEL URINE DRUG REPOR T amphetamine NEGATI VE NG/mL <1000. 0 Not Available Nguyen Alvarez MD [facility] ([facility]) [address] [place] [address], [address], 12/24/2024 13:22:23 12/22/19 25 12/22/2024 D-PRE SUMPT ASAEL URINE DRUG REPOR T benzodiazepi ne >991.3 NG/mL <200.0 high Curre nt metho d may not detec t low level s of Klono pin Not Available Nguyen Alvarez MD [facility] ([facility]) [address] [place] [address], [address], 12/24/2024 13:22:23 12/22/19 25 12/22/2024 D-PRE SUMPT ASAEL URINE DRUG REPOR T buprenorphin e NEGATI VE NG/mL <10.0 Not Available Nguyen Alvarez MD [facility] ([facility]) [address] [place] [address], [address], 12/24/2024 13:22:23 12/22/19 25 12/22/2024 D-PRE SUMPT ASAEL URINE DRUG REPOR T cannabinoid NEGATI VE NG/mL <50.0 Not Available Nguyen Alvarez MD [facility] ([facility]) [address] [place] [address], 74[address], 12/24/2024 13:22:23 12/22/19 25 12/22/2024 D-PRE SUMPT ASAEL URINE DRUG REPOR T cocaine NEGATI VE NG/mL <300.0 Not Available Nguyen Alvarez MD [facility] ([facility]) [address] [place] [address], [address], 12/24/2024 13:22:23 12/22/19 25 12/22/2024 D-PRE SUMPT ASAEL URINE DRUG REPOR T ethanol NEGATI VE mg/dL <50.0 Not Available Nguyen Alvarez MD [facility] ([facility]) [address] [place] [address], [address], 12/24/2024 13:22:23 12/22/19 25 12/22/2024 D-PRE SUMPT ASAEL URINE DRUG REPOR T methadone <0.8 NG/mL <300.0 Not Available Nguyen Alvarez MD [facility] ([facility]) [address] [place] [address], [address], 12/24/2024 13:22:23 12/22/19 25 12/22/2024 D-PRE SUMPT ASAEL URINE DRUG REPOR T opiates 609.0 NG/mL <300.0 high Opiat es inclu georges Codei ne,Mo rphin e, Henderson morph one,H ydroc odone Not Available Nguyen Alvarez MD [facility] ([facility]) [address] [place] [address], 09298, 12/24/2024 13:22:23 12/22/19 25 12/22/2024 D-PRE SUMPT ASAEL URINE DRUG REPOR T oxycodone 4.0 NG/mL <300.0 Not Available Nguyen Alvarez MD [facility] ([facility]) [address] [place] [address], 40494, 12/24/2024 13:22:23 12/22/19 25 12/22/2024 D-PRE SUMPT ASAEL URINE DRUG REPOR T urine creatinine (validity test) 92.8 mg/dL 20.0 - 300.0 Not Available Nguyen Alvarez MD [facility] ([facility]) [address] [place] [address], 68149, 12/24/2024 13:22:23 12/22/19 25 12/22/2024 COMPR EHENS ASAEL METAB OLIC PANEL (CMP) glucose 187.0 mg/dL 74.0 - 110.0 high Not Available Nguyen Alvarez MD [facility] ([facility]) [address] [place] [address], 13991, 12/22/2024 14:50:52 12/22/19 25 12/22/2024 COMPR EHENS ASAEL METAB OLIC PANEL (CMP) BUN 12.0 mg/dL 4.0 - 25.0 Not Available Nguyen Alvarez MD [facility] ([facility]) [address] [place] [address], 70678, 12/22/2024 14:50:52 12/22/19 25 12/22/2024 COMPR EHENS ASAEL METAB OLIC PANEL (CMP) creatinine 1.0 mg/dL 0.6 - 1.8 Not Available Nguyen Alvarez MD [facility] ([facility]) [address] [place] [address], 01163, 12/22/2024 14:50:52 12/22/19 25 12/22/2024 COMPR EHENS ASAEL METAB OLIC PANEL (CMP) sodium 140 mEq/L 133 - 145 Not Available Nguyen Alvarez MD [facility] ([facility]) [address] [place] [address], 27429, 12/22/2024 14:50:52 12/22/19 25 12/22/2024 COMPR EHENS ASAEL METAB OLIC PANEL (CMP) potassium 3.4 mEq/L 3.4 - 5.1 Not Available Nguyen Alvarez MD [facility] ([facility]) [address] [place] [address], [address], 12/22/2024 14:50:52 12/22/19 25 12/22/2024 COMPR EHENS ASAEL METAB OLIC PANEL (CMP) chloride 102.4 mEq/L 93.0 - 106.0 Not Available Nguyen Alvarez MD [facility] ([facility]) [address] [place] [address], 41411, 12/22/2024 14:50:52 12/22/19 25 12/22/2024 COMPR EHENS ASAEL METAB OLIC PANEL (CMP) eco2 29.0 mEq/L 24.6 - 35.8 Not Available Nguyen Alvarez MD [facility] ([facility]) [address] [place] [address], 87337, 12/22/2024 14:50:52 12/22/19 25 12/22/2024 COMPR EHENS ASAEL METAB OLIC PANEL (CMP) calcium 9.3 mg/dL 8.3 - 10.1 Not Available Nguyen Alvarez MD [facility] ([facility]) [address] [place] [address], 08583, 12/22/2024 14:50:52 12/22/19 25 12/22/2024 COMPR EHENS ASAEL METAB OLIC PANEL (CMP) total protein 6.5 g/dL 6.0 - 8.5 Not Available Nguyen Alvarez MD [facility] ([facility]) [address] [place] [address], 37118, 12/22/2024 14:50:52 12/22/19 25 12/22/2024 COMPR EHENS ASAEL METAB OLIC PANEL (CMP) albumin 4.0 g/dL 3.3 - 4.9 Not Available Nguyen Alvarez MD [facility] ([facility]) [address] [place] [address], 82307, 12/22/2024 14:50:52 12/22/19 25 12/22/2024 COMPR EHENS ASAEL METAB OLIC PANEL (CMP) ALP 115.0 U/L 46.0 - 116.0 Not Available Nguyen Alvarez MD [facility] ([facility]) [address] [place] [address], 28670, 12/22/2024 14:50:52 12/22/19 25 12/22/2024 COMPR EHENS ASAEL METAB OLIC PANEL (CMP) AST 22 U/L 6 - 40 Not Available Nguyen Alvarez MD [facility] ([facility]) [address] [place] [address], 66293, 12/22/2024 14:50:52 12/22/19 25 12/22/2024 COMPR EHENS ASAEL METAB OLIC PANEL (CMP) ALT 27 U/L 5 - 30 Not Available Nguyen Alvarez MD [facility] ([facility]) [address] [place] [address], 89950, 12/22/2024 14:50:52 12/22/19 25 12/22/2024 COMPR EHENS ASAEL METAB OLIC PANEL (CMP) total bilirubin 0.70 mg/dL 0.00 - 1.00 Not Available Nguyen Alvarez MD [facility] ([facility]) [address] [place] [address], 72241, 12/22/2024 14:50:52 12/22/19 25 12/22/2024 CBC WITH DIFFE RENTI AL/PL ATELE T WBC 10.5 10 4.0 - 11.0 Not Available Nguyen Alvarez MD [facility] ([facility]) [address] [place] [address], 09761, 12/22/2024 14:50:52 12/22/19 25 12/22/2024 CBC WITH DIFFE RENTI AL/PL ATELE T RBC 5.01 10 4.02 - 6.00 Not Available Nguyen Alvarez MD [facility] ([facility]) [address] [place] [address], [address]27, 12/22/2024 14:50:52 12/22/19 25 12/22/2024 CBC WITH DIFFE RENTI AL/PL ATELE T HGB 15.6 g/dL 12.1 - 17.9 Not Available Nguyen Alvarez MD [facility] ([facility]) [address] [place] [address], 02983, 12/22/2024 14:50:52 12/22/19 25 12/22/2024 CBC WITH DIFFE RENTI AL/PL ATELE T HCT 44.4 % 36.6 - 52.0 Not Available Nguyen Alvarez MD [facility] ([facility]) [address] [place] [address], 05965, 12/22/2024 14:50:52 12/22/19 25 12/22/2024 CBC WITH DIFFE RENTI AL/PL ATELE T MCV 88.6 fL 79.5 - 101.0 Not Available Nguyen Alvarez MD [facility] ([facility]) [address] [place] [address], 81593, 12/22/2024 14:50:52 12/22/19 25 12/22/2024 CBC WITH DIFFE RENTI AL/PL ATELE T MCH 31.1 pg 26.2 - 34.0 Not Available Nguyen Alvarez MD [facility] ([facility]) [address] [place] [address], 33219, 12/22/2024 14:50:52 12/22/19 25 12/22/2024 CBC WITH DIFFE RENTI AL/PL ATELE T MCHC 35.1 g/dL 31.3 - 36.0 Not Available Nguyen Alvarez MD [facility] ([facility]) [address] [place] [address], 35980, 12/22/2024 14:50:52 12/22/19 25 12/22/2024 CBC WITH DIFFE RENTI AL/PL ATELE T plt 229 10 115 - 421 Not Available Nguyen Alvarez MD [facility] ([facility]) [address] [place] [address], 52866, 12/22/2024 14:50:52 12/22/19 25 12/22/2024 CBC WITH DIFFE RENTI AL/PL ATELE T RDW-CV 14.0 % 11.3 - 16.1 Not Available Nguyen Alvarez MD [facility] ([facility]) [address] [place] [address], 73751, 12/22/2024 14:50:52 12/22/19 25 12/22/2024 CBC WITH DIFFE RENTI AL/PL ATELE T neut# 4.65 10 0.81 - 9.65 Not Available Nguyen Alvarez MD [facility] ([facility]) [address] [place] [address], 09999, 12/22/2024 14:50:52 12/22/19 25 12/22/2024 CBC WITH DIFFE RENTI AL/PL ATELE T lymph# 3.53 10 0.65 - 4.81 Not Available Nguyen Alvarez MD [facility] ([facility]) [address] [place] [address], 44074, 12/22/2024 14:50:52 12/22/19 25 12/22/2024 CBC WITH DIFFE RENTI AL/PL ATELE T mono# 1.08 10 0.10 - 1.13 Not Available Nguyen Alvarez MD [facility] ([facility]) [address] [place] [address], 92000, 12/22/2024 14:50:52 12/22/19 25 12/22/2024 CBC WITH DIFFE RENTI AL/PL ATELE T eo# 1.18 10 0.00 - 0.50 high Not Available Nguyen Alvarez MD [facility] ([facility]) [address] [place] [address], 56629, 12/22/2024 14:50:52 12/22/19 25 12/22/2024 CBC WITH DIFFE RENTI AL/PL ATELE T baso# 0.04 10 0.00 - 0.09 Not Available Nguyen Alvarez MD [facility] ([facility]) [address] [place] [address], 04898, 12/22/2024 14:50:52 12/22/19 25 12/22/2024 CBC WITH DIFFE RENTI AL/PL ATELE T neut% 44.3 % 37.2 - 78.0 Not Available Nguyen Alvarez MD [facility] ([facility]) [address] [place] [address], 34934, 12/22/2024 14:50:52 12/22/19 25 12/22/2024 CBC WITH DIFFE RENTI AL/PL ATELE T lymph% 33.7 % 13.4 - 50.2 Not Available Nguyen Alvarez MD [facility] ([facility]) [address] [place] [address], 78628, 12/22/2024 14:50:52 12/22/19 25 12/22/2024 CBC WITH DIFFE RENTI AL/PL ATELE T mono% 10.3 % 3.4 - 12.0 Not Available Nguyen Alvarez MD [facility] ([facility]) [address] [place] [address], 02727, 12/22/2024 14:50:52 12/22/19 25 12/22/2024 CBC WITH DIFFE RENTI AL/PL ATELE T eo% 11.3 % 0.0 - 7.0 high Not Available Nguyen Alvarez MD [facility] ([facility]) [address] [place] [address], 90556, 12/22/2024 14:50:52 12/22/19 25 12/22/2024 CBC WITH DIFFE RENTI AL/PL ATELE T baso% 0.4 % 0.0 - 3.0 Not Available Nguyen Alvarez MD [facility] ([facility]) [address] [place] [address], 91901, 12/22/2024 14:50:52 03/19/20 25 03/19/2025 OXYCO DONE/ ACETA MINOP HEN abnormal status abnormal Not Available Hiro Alvarez MD [facility] ([facility]) [address] [place] [address], 11578, 04/13/2025 11:42:17 03/19/20 25 03/19/2025 OXYCO DONE/ ACETA MINOP HEN abnormal status high Not Available Hiro Alvarez MD [facility] ([facility]) [address] [place] [address], 64667, 04/13/2025 11:42:17 03/19/2004/13/2025 OXYCO DONE DEFIN ITIVE PANEL -LC/M S oxycodone >5000 NG/mL <75.0 abnormal Not Available Nguyen Alvarez MD [facility] ([facility]) [address] [place] [address], 48494, 04/13/2025 11:42:17 03/19/20 25 04/13/2025 OXYCO DONE DEFIN ITIVE PANEL -LC/M S noroxycodone >5000 NG/mL <75.0 abnormal Not Available Mane Alvarez MD [facility] ([facility]) [address] [place] [address], 87213, 04/13/2025 11:42:17 03/19/20 25 04/13/2025 OXYCO DONE DEFIN ITIVE PANEL -LC/M S oxymorphone 1081.2 NG/mL <75.0 abnormal Not Available Jagjit Alvarez MD [facility] ([facility]) [address] [place] [address], 29309, 04/13/2025 11:42:17 03/19/2004/13/2025 BENZO DIAZE PINE DEFIN ITIVE PANEL - LC/MS alprazolam 364.3 NG/mL <75.0 abnormal Not Available Hiro Alvarez MD [facility] ([facility]) [address] [place] [address], 99532, 04/13/2025 11:42:16 03/19/2004/13/2025 BENZO DIAZE PINE DEFIN ITIVE PANEL - LC/MS A-hydroxyalp razolam 408.9 NG/mL <75.0 abnormal Not Available Hiro Alvarez MD [facility] ([facility]) [address] [place] [address], 20045, 04/13/2025 11:42:16 03/19/2004/13/2025 BENZO DIAZE PINE DEFIN ITIVE PANEL - LC/MS clonazepam 0 NG/mL <75.0 Not Available Nguyen Alvarez MD [facility] ([facility]) [address] [place] [address], 44835, 04/13/2025 11:42:16 03/19/2004/13/2025 BENZO DIAZE PINE DEFIN ITIVE PANEL - LC/MS 7-aminoclona zepam 0 NG/mL <75.0 Not Available Hiro Alvarez MD [facility] ([facility]) [address] [place] [address], 83548, 04/13/2025 11:42:16 03/19/2004/13/2025 BENZO DIAZE PINE DEFIN ITIVE PANEL - LC/MS diazepam 0 NG/mL <75.0 Not Available Nguyen Alvarez MD [facility] ([facility]) [address] [place] [address], 65281, 04/13/2025 11:42:16 03/19/2004/13/2025 BENZO DIAZE PINE DEFIN ITIVE PANEL - LC/MS oxazepam 0 NG/mL <75.0 Not Available Nguyen Alvarez MD [facility] ([facility]) [address] [place] [address], 76720, 04/13/2025 11:42:16 03/19/2004/13/2025 BENZO DIAZE PINE DEFIN ITIVE PANEL - LC/MS temazepam 0 NG/mL <75.0 Not Available Nguyen Alvarez MD [facility] ([facility]) [address] [place] [address], 77938, 04/13/2025 11:42:16 03/19/20 25 04/13/2025 BENZO DIAZE PINE DEFIN ITIVE PANEL - LC/MS lorazepam 0 NG/mL <75.0 Not Available Nguyen Alvarez MD [facility] ([facility]) [address] [place] [address], 75286, 04/13/2025 11:42:16 03/19/20 25 03/19/2025 D-PRE SUMPT ASAEL URINE DRUG REPOR T amphetamine NEGATI VE NG/mL <1000. 0 Not Available Nguyen Alvarez MD [facility] ([facility]) [address] [place] [address], 26646, 04/13/2025 11:42:15 03/19/20 25 03/19/2025 D-PRE SUMPT ASAEL URINE DRUG REPOR T benzodiazepi ne >991.3 NG/mL <200.0 high Curre nt metho d may not detec t low level s of Klono pin Not Available Nguyen Alvarez MD [facility] ([facility]) [address] [place] [address], 13210, 04/13/2025 11:42:15 03/19/20 25 03/19/2025 D-PRE SUMPT ASAEL URINE DRUG REPOR T buprenorphin e NEGATI VE NG/mL <10.0 Not Available Nguyen Alvarez MD [facility] ([facility]) [address] [place] [address], 41062, 04/13/2025 11:42:15 03/19/20 25 03/19/2025 D-PRE SUMPT ASAEL URINE DRUG REPOR T cannabinoid NEGATI VE NG/mL <50.0 Not Available Nguyen Alvarez MD [facility] ([facility]) [address] [place] [address], 56817, 04/13/2025 11:42:15 03/19/20 25 03/19/2025 D-PRE SUMPT ASAEL URINE DRUG REPOR T cocaine NEGATI VE NG/mL <300.0 Not Available Nguyen Alvarez MD [facility] (In House Lab) [address] [place] [address], [id number], 04/13/2025 11:42:15 03/19/20 25 03/19/2025 D-PRE SUMPT ASAEL URINE DRUG REPOR T ethanol NEGATI VE mg/dL <50.0 Not Available Nguyen Alvarez MD [facility] (In House Lab) [address] [place], [id number], 04/13/2025 11:42:15 03/19/20 25 03/19/2025 D-PRE SUMPT ASAEL URINE DRUG REPOR T methadone 19.0 NG/mL <300.0 Not Available Nguyen Alvarez MD [facility] (In House Lab) [address] [place] [address], [id number], 04/13/2025 11:42:15 03/19/20 25 03/19/2025 D-PRE SUMPT ASAEL URINE DRUG REPOR T opiates 61.0 NG/mL <300.0 Opiat es inclu georges Codei ne,Mo rphin e, Henderson morph one,H ydroc odone Not Available Nguyen Alvarez MD [facility] (In House Lab) [address] [place] [address], [id number], 04/13/2025 11:42:15 03/19/20 25 03/19/2025 D-PRE SUMPT ASAEL URINE DRUG REPOR T oxycodone >793 NG/mL <300.0 high Not Available Nguyen Alvarez MD [facility] (In House Lab) [address] [place] [address], [id number], 04/13/2025 11:42:15 03/19/20 25 03/19/2025 D-PRE SUMPT ASAEL URINE DRUG REPOR T urine creatinine (validity test) 131.7 mg/dL 20.0 - 300.0 Not Available Nguyen Alvarez MD [facility] (In House Lab) [address] [place] [address], [address], 04/13/2025 11:42:15 05/18/20 25 05/18/2025 OXYCO DONE/ ACETA MINOP HEN abnormal status abnormal Not Available Hiro Alvarez MD [facility] (In House Lab) [address] [place], [address], 06/08/2025 15:59:45 05/18/20 25 05/18/2025 OXYCO DONE/ ACETA MINOP HEN abnormal status high Not Available Hiro Alvarez MD [facility] (In House Lab) [address] [place] [address], 85853, 06/08/2025 15:59:45 05/18/20 25 06/08/2025 OXYCO DONE DEFIN ITIVE PANEL -LC/M S oxycodone 1864.8 NG/mL <75.0 abnormal Not Available Nguyen Alvarez MD [facility] (In House Lab) [address] [place] [address], 01563, 06/08/2025 15:59:45 05/18/20 25 06/08/2025 OXYCO DONE DEFIN ITIVE PANEL -LC/M S noroxycodone 1257.3 NG/mL <75.0 abnormal Not Available Mane Alvarez MD [facility] (In House Lab) [address] [place] [address], 88474, 06/08/2025 15:59:45 05/18/20 25 06/08/2025 OXYCO DONE DEFIN ITIVE PANEL -LC/M S oxymorphone 165.3 NG/mL <75.0 abnormal Not Available Jagjit Alvarez MD [facility] (In House Lab) [address] [place] [address], 75258, 06/08/2025 15:59:45 05/18/20 25 06/08/2025 BENZO DIAZE PINE DEFIN ITIVE PANEL - LC/MS alprazolam 99.4 NG/mL <75.0 abnormal Not Available Hiro Alvarez MD [facility] (In House Lab) [address] [place] [address], 31927, 06/08/2025 15:59:44 05/18/20 25 06/08/2025 BENZO DIAZE PINE DEFIN ITIVE PANEL - LC/MS A-hydroxyalp razolam 120.9 NG/mL <75.0 abnormal Not Available Hiro Alvarez MD [facility] (In House Lab) [address] [place] [address], 15068, 06/08/2025 15:59:44 05/18/20 25 06/08/2025 BENZO DIAZE PINE DEFIN ITIVE PANEL - LC/MS clonazepam 0 NG/mL <75.0 Not Available Nguyen Alvarez MD [facility] (In House Lab) [address] [place] [address], 44030, 06/08/2025 15:59:44 05/18/20 25 06/08/2025 BENZO DIAZE PINE DEFIN ITIVE PANEL - LC/MS 7-aminoclona zepam 0 NG/mL <75.0 Not Available Hiro Alvarez MD [facility] (In House Lab) [address] [place] [address], 87217, 06/08/2025 15:59:44 05/18/20 25 06/08/2025 BENZO DIAZE PINE DEFIN ITIVE PANEL - LC/MS diazepam 0 NG/mL <75.0 Not Available Nguyen Alvarez MD [facility] (In House Lab) [address] [place] [address], 33237, 06/08/2025 15:59:44 05/18/20 25 06/08/2025 BENZO DIAZE PINE DEFIN ITIVE PANEL - LC/MS oxazepam 0 NG/mL <75.0 Not Available Nguyen Alvarez MD [facility] (In House Lab) [address] [place] [address], 92960, 06/08/2025 15:59:44 05/18/20 25 06/08/2025 BENZO DIAZE PINE DEFIN ITIVE PANEL - LC/MS temazepam 0 NG/mL <75.0 Not Available Nguyen Alvarez MD [facility] (In House Lab) [address] [place] [address], 42762, 06/08/2025 15:59:44 05/18/20 25 06/08/2025 BENZO DIAZE PINE DEFIN ITIVE PANEL - LC/MS lorazepam 0 NG/mL <75.0 Not Available Nguyen Alvarez MD [facility] (In House Lab) [address] [place] [address], 80880, 06/08/2025 15:59:44 05/18/20 25 05/18/2025 D-PRE SUMPT ASAEL URINE DRUG REPOR T amphetamine NEGATI VE NG/mL <1000. 0 Not Available Nguyen Alvarez MD [facility] (In House Lab) [address] [place] [address], 36125, 06/08/2025 15:59:43 05/18/20 25 05/18/2025 D-PRE SUMPT ASAEL URINE DRUG REPOR T benzodiazepi ne >991.3 NG/mL <200.0 high Curre nt metho d may not detec t low level s of Klono pin Not Available Nguyen Alvarez MD [facility] (In House Lab) [address] [place] [address], 55977, 06/08/2025 15:59:43 05/18/20 25 05/18/2025 D-PRE SUMPT ASAEL URINE DRUG REPOR T buprenorphin e NEGATI VE NG/mL <10.0 Not Available Nguyen Alvarez MD [facility] (In House Lab) [address] [place] [address], 30828, 06/08/2025 15:59:43 05/18/20 25 05/18/2025 D-PRE SUMPT ASAEL URINE DRUG REPOR T cannabinoid NEGATI VE NG/mL <50.0 Not Available Nguyen Alvarez MD [facility] (In House Lab) [address] [place] [address], 50702, 06/08/2025 15:59:43 05/18/20 25 05/18/2025 D-PRE SUMPT ASAEL URINE DRUG REPOR T cocaine NEGATI VE NG/mL <300.0 Not Available Nguyen Alvarez MD [facility] (In House Lab) [address] [place] [address], 15466, 06/08/2025 15:59:43 05/18/20 25 05/18/2025 D-PRE SUMPT ASAEL URINE DRUG REPOR T ethanol NEGATI VE mg/dL <50.0 Not Available Nguyen Alvarez MD [facility] (In House Lab) [address] [place] [address], 30218, 06/08/2025 15:59:43 05/18/20 25 05/18/2025 D-PRE SUMPT ASAEL URINE DRUG REPOR T methadone 8.0 NG/mL <300.0 Not Available Nguyen Alvarez MD [facility] (In House Lab) [address] [place] [address], 40063, 06/08/2025 15:59:43 05/18/20 25 05/18/2025 D-PRE SUMPT ASAEL URINE DRUG REPOR T opiates 23.0 NG/mL <300.0 Opiat es inclu georges Codei ne,Mo rphin e, Henderson morph one,H ydroc odone Not Available Nguyen Alvarez MD [facility] (In House Lab) [address] [place] [address], 16760, 06/08/2025 15:59:43 05/18/20 25 05/18/2025 D-PRE SUMPT ASAEL URINE DRUG REPOR T oxycodone >793 NG/mL <300.0 high Not Available Nguyen Alvarez MD [facility] (In House Lab) [address] [place] [address], 90651, 06/08/2025 15:59:43 05/18/20 25 05/18/2025 D-PRE SUMPT ASAEL URINE DRUG REPOR T urine creatinine (validity test) 45.3 mg/dL 20.0 - 300.0 Not Available Nguyen Alvarez MD [facility] (In House Lab) [address] [place] [address], 86584, 06/08/2025 15:59:43 07/17/20 25 07/17/2025 OXYCO DONE/ ACETA MINOP HEN abnormal status abnormal Not Available Hiro Alvarez MD [facility] (In House Lab) [address] [place] [address], 15960, 07/30/2025 14:03:49 07/17/20 25 07/17/2025 OXYCO DONE/ ACETA MINOP HEN abnormal status high Not Available Hiro Alvarez MD [facility] (In House Lab) [address] [place] [address], 02740, 07/30/2025 14:03:49 07/17/20 25 07/30/2025 OXYCO DONE DEFIN ITIVE PANEL -LC/M S oxycodone 2236.7 NG/mL <75.0 abnormal Not Available Nguyen Alvarez MD [facility] (In House Lab) [address] [place] [address], 07662, 07/30/2025 14:03:48 07/17/20 25 07/30/2025 OXYCO DONE DEFIN ITIVE PANEL -LC/M S noroxycodone 2330.2 NG/mL <75.0 abnormal Not Available Mane Alvarez MD [facility] (In House Lab) [address] [place] [address], 86111, 07/30/2025 14:03:48 07/17/20 25 07/30/2025 OXYCO DONE DEFIN ITIVE PANEL -LC/M S oxymorphone 192.7 NG/mL <75.0 abnormal Not Available Jagjit Alvarez MD [facility] (In House Lab) [address] [place] [address], 47805, 07/30/2025 14:03:48 07/17/20 25 07/30/2025 BENZO DIAZE PINE DEFIN ITIVE PANEL - LC/MS alprazolam 104.8 NG/mL <75.0 abnormal Not Available Hiro Alvarez MD [facility] (In House Lab) [address] [place] [address], 22352, 07/30/2025 14:03:48 07/17/20 25 07/30/2025 BENZO DIAZE PINE DEFIN ITIVE PANEL - LC/MS A-hydroxyalp razolam 163.7 NG/mL <75.0 abnormal Not Available Hiro Alvarez MD [facility] (In House Lab) [address] [place] [address], 57716, 07/30/2025 14:03:48 07/17/20 25 07/30/2025 BENZO DIAZE PINE DEFIN ITIVE PANEL - LC/MS clonazepam 0 NG/mL <75.0 Not Available Nguyen Alvarez MD [facility] (In House Lab) [address] [place] [address], 80811, 07/30/2025 14:03:48 07/17/20 25 07/30/2025 BENZO DIAZE PINE DEFIN ITIVE PANEL - LC/MS 7-aminoclona zepam 0 NG/mL <75.0 Not Available Hiro Alvarez MD [facility] (In House Lab) [address] [place] [address], 21031, 07/30/2025 14:03:48 07/17/20 25 07/30/2025 BENZO DIAZE PINE DEFIN ITIVE PANEL - LC/MS diazepam 0 NG/mL <75.0 Not Available Nguyen Alvarez MD [facility] (In House Lab) [address] [place] [address], 06939, 07/30/2025 14:03:48 07/17/20 25 07/30/2025 BENZO DIAZE PINE DEFIN ITIVE PANEL - LC/MS oxazepam 0 NG/mL <75.0 Not Available Nguyen Alvarez MD [facility] (In House Lab) [address] [place] [address], 49688, 07/30/2025 14:03:48 07/17/20 25 07/30/2025 BENZO DIAZE PINE DEFIN ITIVE PANEL - LC/MS temazepam 0 NG/mL <75.0 Not Available Nguyen Alvarez MD [facility] (In House Lab) [address] [place] [address], 44726, 07/30/2025 14:03:48 07/17/20 25 07/30/2025 BENZO DIAZE PINE DEFIN ITIVE PANEL - LC/MS lorazepam 0 NG/mL <75.0 Not Available Nguyen Alvarez MD [facility] (In House Lab) [address] [place] [address], 55500, 07/30/2025 14:03:48 07/17/20 25 07/17/2025 D-PRE SUMPT ASAEL URINE DRUG REPOR T amphetamine NEGATI VE NG/mL <1000. 0 Not Available Nguyen Alvarez MD [facility] (In House Lab) [address] [place] [address], 51554, 07/30/2025 14:03:47 07/17/20 25 07/17/2025 D-PRE SUMPT ASAEL URINE DRUG REPOR T benzodiazepi ne >991.3 NG/mL <200.0 high Curre nt metho d may not detec t low level s of Klono pin Not Available Nguyen Alvarez MD [facility] (In House Lab) [address] [place] [address], 04472, 07/30/2025 14:03:47 07/17/20 25 07/17/2025 D-PRE SUMPT ASAEL URINE DRUG REPOR T buprenorphin e NEGATI VE NG/mL <10.0 Not Available Nguyen Alvarez MD [facility] (In House Lab) [address] [place] [address], 35647, 07/30/2025 14:03:47 07/17/20 25 07/17/2025 D-PRE SUMPT ASAEL URINE DRUG REPOR T cannabinoid NEGATI VE NG/mL <50.0 Not Available Nguyen Alvarez MD [facility] (In House Lab) [address] [place] [address], 20951, 07/30/2025 14:03:47 07/17/20 25 07/17/2025 D-PRE SUMPT ASAEL URINE DRUG REPOR T cocaine NEGATI VE NG/mL <300.0 Not Available Nguyen Alvarez MD [facility] (In House Lab) [address] [place] [address], 46775, 07/30/2025 14:03:47 07/17/20 25 07/17/2025 D-PRE SUMPT ASAEL URINE DRUG REPOR T ethanol NEGATI VE mg/dL <50.0 Not Available Nguyen Alvarez MD [facility] (In House Lab) [address] [place] [address], 07548, 07/30/2025 14:03:47 07/17/20 25 07/17/2025 D-PRE SUMPT ASAEL URINE DRUG REPOR T methadone 15.0 NG/mL <300.0 Not Available Nguyen Alvarez MD [facility] (In House Lab) [address] [place] [address], 33487, 07/30/2025 14:03:47 07/17/20 25 07/17/2025 D-PRE SUMPT ASAEL URINE DRUG REPOR T opiates 44.0 NG/mL <300.0 Opiat es inclu georges Codei ne,Mo rphin e, Henderson morph one,H ydroc odone Not Available Nguyen Alvarez MD [facility] (In House Lab) [address] [place] [address], 69967, 07/30/2025 14:03:47 07/17/20 25 07/17/2025 D-PRE SUMPT ASAEL URINE DRUG REPOR T oxycodone >793 NG/mL <300.0 high Not Available Nguyen Alvarez MD [facility] (In House Lab) [address] [place] [address], 19357, 07/30/2025 14:03:47 07/17/20 25 07/17/2025 D-PRE SUMPT ASAEL URINE DRUG REPOR T urine creatinine (validity test) 79.4 mg/dL 20.0 - 300.0 Not Available Nguyen Alvarez MD [facility] (In House Lab) [address] [place] [address], 64531, 07/30/2025 14:03:47 09/14/20 25 09/14/2025 OXYCO DONE abnormal status abnormal Not Available Hiro Alvarez MD [facility] (In House Lab) [address] [place] [address], 50206, 09/24/2025 06:44:44 09/14/20 25 09/14/2025 OXYCO DONE abnormal status high Not Available Hiro Alvarez MD [facility] (In House Lab) [address] [place] [address], 57750, 09/24/2025 06:44:44 09/14/20 25 09/24/2025 OXYCO DONE DEFIN ITIVE PANEL -LC/M S oxycodone 2649.2 NG/mL <75.0 abnormal Not Available Nguyen Alvarez MD [facility] (In House Lab) [address] [place] [address], 60119, 09/24/2025 06:44:44 09/14/20 25 09/24/2025 OXYCO DONE DEFIN ITIVE PANEL -LC/M S noroxycodone 1594.4 NG/mL <75.0 abnormal Not Available Mane Alvarez MD [facility] (In House Lab) [address] [place] [address], 18599, 09/24/2025 06:44:44 09/14/20 25 09/24/2025 OXYCO DONE DEFIN ITIVE PANEL -LC/M S oxymorphone 229.4 NG/mL <75.0 abnormal Not Available Jagjit Alvarez MD [facility] (In House Lab) [address] [place] [address], 58075, 09/24/2025 06:44:44 09/14/20 25 09/24/2025 BENZO DIAZE PINE DEFIN ITIVE PANEL - LC/MS alprazolam 73.3 NG/mL <75.0 Not Available Nguyen Alvarez MD [facility] (In House Lab) [address] [place] [address], 62301, 09/24/2025 06:44:43 09/14/2009/24/2025 BENZO DIAZE PINE DEFIN ITIVE PANEL - LC/MS A-hydroxyalp razolam 92.8 NG/mL <75.0 abnormal Not Available Hiro Alvarez MD [facility] (In House Lab) [address] [place] [address], 04768, 09/24/2025 06:44:43 09/14/20 25 09/24/2025 BENZO DIAZE PINE DEFIN ITIVE PANEL - LC/MS clonazepam 0 NG/mL <75.0 Not Available Nguyen Alvarez MD [facility] (In House Lab) [address] [place] [address], 14561, 09/24/2025 06:44:43 09/14/20 25 09/24/2025 BENZO DIAZE PINE DEFIN ITIVE PANEL - LC/MS 7-aminoclona zepam 0 NG/mL <75.0 Not Available Hiro Alvarez MD [facility] (In House Lab) [address] [place] [address], 13631, 09/24/2025 06:44:43 09/14/20 25 09/24/2025 BENZO DIAZE PINE DEFIN ITIVE PANEL - LC/MS diazepam 0 NG/mL <75.0 Not Available Nguyen Alvarez MD [facility] (In House Lab) [address] [place] [address], 45096, 09/24/2025 06:44:43 09/14/20 25 09/24/2025 BENZO DIAZE PINE DEFIN ITIVE PANEL - LC/MS oxazepam 0 NG/mL <75.0 Not Available Nguyen Alvarez MD [facility] (In House Lab) [address] [place] [address], 58848, 09/24/2025 06:44:43 09/14/20 25 09/24/2025 BENZO DIAZE PINE DEFIN ITIVE PANEL - LC/MS temazepam 0 NG/mL <75.0 Not Available Nguyen Alvarez MD [facility] (In House Lab) [address] [place] [address], 51894, 09/24/2025 06:44:43 09/14/20 25 09/24/2025 BENZO DIAZE PINE DEFIN ITIVE PANEL - LC/MS lorazepam 0 NG/mL <75.0 Not Available Nguyen Alvarez MD [facility] (In House Lab) [address] [place] [address], 01465, 09/24/2025 06:44:43 09/14/20 25 09/14/2025 D-PRE SUMPT ASAEL URINE DRUG REPOR T amphetamine NEGATI VE NG/mL <1000. 0 Not Available Nguyen Alvarez MD [facility] (In House Lab) [address] [place] [address], 40641, 09/24/2025 06:44:43 09/14/20 25 09/14/2025 D-PRE SUMPT ASAEL URINE DRUG REPOR T benzodiazepi ne >991.3 NG/mL <200.0 high Curre nt metho d may not detec t low level s of Klono pin Not Available Nguyen Alvarez MD [facility] (In House Lab) [address] [place] [address], 88747, 09/24/2025 06:44:43 09/14/20 25 09/14/2025 D-PRE SUMPT ASAEL URINE DRUG REPOR T buprenorphin e NEGATI VE NG/mL <10.0 Not Available Nguyen Alvarez MD [facility] (In House Lab) [address] [place] [address], 67722, 09/24/2025 06:44:43 09/14/20 25 09/14/2025 D-PRE SUMPT ASAEL URINE DRUG REPOR T cannabinoid NEGATI VE NG/mL <50.0 Not Available Nguyen Alvarez MD [facility] (In House Lab) [address] [place] [address], 65497, 09/24/2025 06:44:43 09/14/20 25 09/14/2025 D-PRE SUMPT ASAEL URINE DRUG REPOR T cocaine NEGATI VE NG/mL <300.0 Not Available Nguyen Alvarez MD [facility] (In House Lab) [address] [place] [address], 64976, 09/24/2025 06:44:43 09/14/20 25 09/14/2025 D-PRE SUMPT ASAEL URINE DRUG REPOR T ethanol NEGATI VE mg/dL <50.0 Not Available Nguyen Alvarez MD [facility] (In House Lab) [address] [place] [address], 37024, 09/24/2025 06:44:43 09/14/20 25 09/14/2025 D-PRE SUMPT ASAEL URINE DRUG REPOR T methadone 14.0 NG/mL <300.0 Not Available Nguyen Alvarez MD [facility] (In House Lab) [address] [place], [address], 09/24/2025 06:44:43 09/14/20 25 09/14/2025 D-PRE SUMPT ASAEL URINE DRUG REPOR T opiates 19.0 NG/mL <300.0 Opiat es inclu georges Codei ne,Mo rphin e, Henderson morph one,H ydroc odone Not Available Nguyen Alvarez MD [facility] (In House Lab) [address] [place] [address], 70658, 09/24/2025 06:44:43 09/14/20 25 09/14/2025 D-PRE SUMPT ASAEL URINE DRUG REPOR T oxycodone >793 NG/mL <300.0 high Not Available Nguyen Alvarez MD [facility] (In House Lab) [address] [place] [address], 68751, 09/24/2025 06:44:43 09/14/20 25 09/14/2025 D-PRE SUMPT ASAEL URINE DRUG REPOR T urine creatinine (validity test) 62.7 mg/dL 20.0 - 300.0 Not Available Nguyen Alvarez MD [facility] (In House Lab) [address] [place] [address], 32589, 09/24/2025 06:44:43 Result Notes None recorded. Problems Name Problem SNOMED Code Status Onset Date Resolution Date Notes Provider Name and Address Organization Details Recorded Time Degeneration of intervertebral disc of lumbar region with discogenic back pain 92214894 Active [address] [facility] [place], [address] [place] [address] - [facility] 5 10:13:33 Notes:Some problems listed i n Documents: #[id number], #[id number], #[id number] could not be added to this patient's chart. Please review these documents and add these problems to the patient's chart manually as needed. Problem Notes None recorded. Medical Equipment None Reported. Allergies Allergen ID Allergen Name Allergen Category Reaction Reaction Severity Criticality Documentation Date Start Date Code Code System Note Provider Name and Address Organization Details Recorded Time 08139 Product containin g penicilli n (product) medicatio n hives Not available Not available 12/22/2024 10809 8001 SNOMED [facility]AL [facility] 5 09:54:49 Medications Name Sig Start Date Stop [...] Available No t Available FreeStyle Nicolas 2 [place] USE DIRECTED TO CHECK BLOOD SUGAR active [...] 2nd Gen Pen Needle 32 gauge x 5/32 USE DIRECTED WITH HUMALOG PEN THREE TIMES DAILY active Not Available Not Available No t Available Vitals Date Recorded Body weight Body mass index (BMI) Body height Body temperature Heart rate Respiratory rate Systolic And Diastolic Provider Name and Address Organization Details Last Updated DateTime 5 180449. 09 g 34.9 kg/m2 180.34 cm 97.5 [degF] 88 /min 16 /min 111/77 mm[Hg] Carina [facility] 5 09:59:18 Date Recorded Body height Body mass index (BMI) Body weight Respiratory rate Body temperature Heart rate Systolic And Diastolic Provider Name and Address Organization Details Last Updated DateTime 5 180.34 cm 34.9 kg/m2 554161. 09 g 16 /min 98.1 [degF] 85 /min 121/86 mm[Hg] [facility] 5 09:44:02 Date Recorded Body height Body mass index (BMI) Body weight Body temperature Respiratory rate Heart rate Systolic And Diastolic Provider Name and Address Organization Details Last Updated DateTime 5 180.34 cm 34.9 kg/m2 824969. 09 g 97.7 [degF] 16 /min 94 /min 128/84 mm[Hg] Carina Alfie [facility] 5 08:30:23 Date Recorded Body height Respiratory rate Body mass index (BMI) Body weight Heart rate Body temperature Systolic And Diastolic Provider Name and Address Organization Details Last Updated DateTime 5 180.34 cm 16 /min 34.9 kg/m2 728804. 09 g 73 /min 98.3 [degF] 134/96 mm[Hg] [facility] 5 07:43:26 Date Recorded Body height Body mass index (BMI) Body weight Body temperature Heart rate Respiratory rate Systolic And Diastolic Provider Name and Address Organization Details Last Updated DateTime 5 180.34 cm 34.9 kg/m2 534406. 09 g 98.1 [degF] 86 /min 18 /min 136/96 mm[Hg] Keaton Lennon [facility] 5 08:41:00 Social History Question Answer Notes LastModified by Formspringizat ion Details LastModified Time What Is The Highest Grade Or Level Of School You Have Completed Or The Highest Degree You Have Received? [id number] [email or web address] Information not available 12/22/2024 What Is Your Relationship Status? Information not available 12/22/2024 Sex: Male Functional Status None recorded. Mental Status None recorded. Family History Nothing Reported Notes:MOTHER LUNG D ISEASE, COPD EMPHYSEMA , FATHER LIVING Medical History No medical history recorded. Past Encounters Encounter ID Performer Location Encounter Start Date Encounter Closed Date Diagnosis/Indication Diagnosis SNOMED-CT Code Diagnosis ICD10 Code Diagnosis IMO Codes Diagnosis Note [id number] MG SHAHID MD [facility] [address] 12/22/2024 09:22:24 12/22/2024 10:23:00 Long-term current use of opiate analgesic drug 7644735146 41169 Z79.891 144392 HP2 (CBC/CMP/G GT) C BC - ordered to monitor the effects of prescribed medication CMP/GGT - ordered to obtain baseline levels for renal and hepatic functions and electrolyt e statusdraw n to monitor the detention effects of current medication .Diagnosti c/Lab: Order Presumptiv e UDT (necessary for rapid results) with Definitive confirmati on for chronic pain patient, to define treatment and reinforce therapeuti c compliance ; the following apply: [Presumpti ve UDT includes: (Amp, Keara, Gonzalo, Bup, THC, GERMAINE, ETOH, Meth, Opi, Oxy )] *-Patient is receiving controlled medication s. *-Presumpt asael UDT to identify presence of illicit/no n-prescrib ed substance( s) - Confirm positive for ongoing safe prescribin g of controlled substances . *-Presumpt asael UDT to identify presence of licit/pres cribed substance( s)-Confirm unexpected results, identify specific drug(s) in large class and ensure appropriat e use of prescribed medication (s). *-Definiti ve UDT inadequate ly detected by Presumptiv e UDT (gabapenti n, pregabalin , tramadol, fentanyl, tapentadol and carisoprod ol). Degenerati on of lumbar intervertebral disc 49437495 M51.360 [id number] MG SHAHID MD 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 medication .Diagnosti c/Lab: Order Presumptiv e UDT (necessary for rapid results) with Definitive confirmati on for chronic pain patient, to define treatment and reinforce therapeuti c compliance ; the following apply:[Pre sumptive UDT includes: (Amp, Keara, Gonzalo, Bup, THC, GERMAINE, ETOH, Meth, Opi, Oxy )]*-Patien t is receiving controlled medication s.*-Presum ptive UDT to identify presence of illicit/no n-prescrib ed substance( s) - Confirm positive for ongoing safe prescribin g of controlled substances .*-Presump tive UDT to identify presence of licit/pres cribed substance( s)-Confirm unexpected results, identify specific drug(s) in large class and ensure appropriat e use of prescribed medication (s). _*-Definit asael UDT inadequate ly detected by Presumptiv e UDT (gabapenti n, pregabalin , tramadol, fentanyl, tapentadol and carisoprod ol).Diagno stic/Lab: Order Presumptiv e UDT (necessary for rapid results) with Definitive confirmati on for chronic pain patient, to define treatment and reinforce therapeuti c compliance ; the following apply: [Presumpti ve UDT includes: (Amp, Keara, Gonzalo, Bup, THC, GERMAINE, ETOH, Meth, Opi, Oxy )] *-Patient is receiving controlled medication s. *-Presumpt asael UDT to identify presence of illicit/no n-prescrib ed substance( s) - Confirm positive for ongoing safe prescribin g of controlled substances . *-Presumpt asael UDT to identify presence of licit/pres cribed substance( s)-Confirm unexpected results, identify specific drug(s) in large class and ensure appropriat e use of prescribed medication (s). *-Definiti ve UDT inadequate ly detected by Presumptiv e UDT (gabapenti n, pregabalin , tramadol, fentanyl, tapentadol and carisoprod ol). 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 of current medication .Diagnosti c/Lab: Order Presumptiv e UDT (necessary for rapid results) with Definitive confirmati on for chronic pain patient, to define treatment and reinforce therapeuti c compliance ; the following apply:[Pre sumptive UDT includes: (Amp, Keara, Gonzalo, Bup, THC, GERMAINE, ETOH, Meth, Opi, Oxy )]*-Patien t is receiving controlled medication s.*-Presum ptive UDT to identify presence of illicit/no n-prescrib ed substance( s) - Confirm positive for ongoing safe prescribin g of controlled substances .*-Presump tive UDT to identify presence of licit/pres cribed substance( s)-Confirm unexpected results, identify specific drug(s) in large class and ensure appropriat e use of prescribed medication (s). _*-Definit asael UDT inadequate ly detected by Presumptiv e UDT (gabapenti n, pregabalin , tramadol, fentanyl, tapentadol and carisoprod ol).Diagno stic/Lab: Order Presumptiv e UDT (necessary for rapid results) with Definitive confirmati on for chronic pain patient, to define treatment and reinforce therapeuti c compliance ; the following apply:[Pre sumptive UDT includes: (Amp, Keara, Gonzalo, Bup, THC, GERMAINE, ETOH, Meth, Opi, Oxy )]*-Patien t is receiving controlled medication s.*-Presum ptive UDT to identify presence of illicit/no n-prescrib ed substance( s) - Confirm positive for ongoing safe prescribin g of controlled substances .*-Presump tive UDT to identify presence of licit/pres cribed substance( s)-Confirm unexpected results, identify specific drug(s) in large class and ensure appropriat e use of prescribed medication (s). _*-Definit asael UDT inadequate ly detected by Presumptiv e UDT (gabapenti n, pregabalin , tramadol, fentanyl, tapentadol and carisoprod ol).Diagno stic/Lab: Order Presumptiv e UDT (necessary for rapid results) with Definitive confirmati on for chronic pain patient, to define treatment and reinforce therapeuti c compliance ; the following apply: [Presumpti ve UDT includes: (Amp, Keara, Gonzalo, Bup, THC, GERMAINE, ETOH, Meth, Opi, Oxy )] *-Patient is receiving controlled medication s. *-Presumpt asael UDT to identify presence of illicit/no n-prescrib ed substance( s) - Confirm positive for ongoing safe prescribin g of controlled substances . *-Presumpt asael UDT to identify presence of licit/pres cribed substance( s)-Confirm unexpected results, identify specific drug(s) in large class and ensure appropriat e use of prescribed medication (s). *-Definiti ve UDT inadequate ly detected by Presumptiv e UDT (gabapenti n, pregabalin , tramadol, fentanyl, tapentadol and carisoprod ol). 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 of current medication .Diagnosti c/Lab: Order Presumptiv e UDT (necessary for rapid results) with Definitive confirmati on for chronic pain patient, to define treatment and reinforce therapeuti c compliance ; the following apply:[Pre sumptive UDT includes: (Amp, Keara, Gonzalo, Bup, THC, GERMAINE, ETOH, Meth, Opi, Oxy )]*-Patien t is receiving controlled medication s.*-Presum ptive UDT to identify presence of illicit/no n-prescrib ed substance( s) - Confirm positive for ongoing safe prescribin g of controlled substances .*-Presump tive UDT to identify presence of licit/pres cribed substance( s)-Confirm unexpected results, identify specific drug(s) in large class and ensure appropriat e use of prescribed medication (s). _*-Definit asael UDT inadequate ly detected by Presumptiv e UDT (gabapenti n, pregabalin , tramadol, fentanyl, tapentadol and carisoprod ol).Diagno stic/Lab: Order Presumptiv e UDT (necessary for rapid results) with Definitive confirmati on for chronic pain patient, to define treatment and reinforce therapeuti c compliance ; the following apply:[Pre sumptive UDT includes: (Amp, Keara, Gonzalo, Bup, THC, GERMAINE, ETOH, Meth, Opi, Oxy )]*-Patien t is receiving controlled medication s.*-Presum ptive UDT to identify presence of illicit/no n-prescrib ed substance( s) - Confirm positive for ongoing safe prescribin g of controlled substances .*-Presump tive UDT to identify presence of licit/pres cribed substance( s)-Confirm unexpected results, identify specific drug(s) in large class and ensure appropriat e use of prescribed medication (s). _*-Definit asael UDT inadequate ly detected by Presumptiv e UDT (gabapenti n, pregabalin , tramadol, fentanyl, tapentadol and carisoprod ol).Diagno stic/Lab: Order Presumptiv e UDT (necessary for rapid results) with Definitive confirmati on for chronic pain patient, to define treatment and reinforce therapeuti c compliance ; the following apply: [Presumpti ve UDT includes: (Amp, Keara, Gonzalo, Bup, THC, GERMAINE, ETOH, Meth, Opi, Oxy )] *-Patient is receiving controlled medication s. *-Presumpt asael UDT to identify presence of illicit/no n-prescrib ed substance( s) - Confirm positive for ongoing safe prescribin g of controlled substances . *-Presumpt asael UDT to identify presence of licit/pres cribed substance( s)-Confirm unexpected results, identify specific drug(s) in large class and ensure appropriat e use of prescribed medication (s). *-Definiti ve UDT inadequate ly detected by Presumptiv e UDT (gabapenti n, pregabalin , tramadol, fentanyl, tapentadol and carisoprod ol). Degenerati on of lumbar intervertebral disc [id number] M51.360 [id number] Anayeli Castaneda, [employer] [address] [facility] [address] [place] [address] 09/14/2025 08:23:51 09/14/2025 09:02:32 Degeneration of lumbar intervertebral disc 11997576 M51.360 [id number] Cervical spondylosis 387 512423 M47.812 80145 Bilateral chronic pain of upper limbs [id number] 1103988 M25.511 M25.512 G89.29 [id number] Long-term current use of opiate analgesic drug [id number] 44396 Z79.891 Health Concerns Section Related Observation LastModified by Organization Detai ls LastModified Time None Recorded Concern Status LastModified by Organization Details LastModified Time None Recorded Advance Directives Directive None Recorded Payers Insurance Date Sequence Insurance Name Policy Number Policy Russo Covered Member ID Russo Member ID Guarantor Name 09/11/2025 1 [facility] (MEDICARE REPLACEMENT/AD VANTAGE - HMO) [place] [id number] [place] 02/20/2025 2 [place]IONAL O) [id number] [place] [id number] [place] 02/20/2025 2 [place] [id number] [place] [id number] [place] 02/20/2025 1 [place] [id number] [place] [id number] [place] 03/19/2025 1 [place] [id number] [place] Notes Date Note Type Note Provider Name and Address Organization Details Recorded Time 12/22/2024 text/html ABRAHAM report reviewed and compliant. Was in Pain clinic [facility] and and quite moths ago and if doesn't do shots and only wants meds.. Pain is in shoulder and lower back. Pain feels like burning and stabbing. Pain keeps awake at night. Pain is constant. Pain is intense nad severe. Pain made better by meds. Pain made worse by moving. Patient is a NEW patient . Medicical management is Hydrocodone 7.5mg BID Prior with oxycodone 10 mg MG SHAHID MD [address] [place], [address], [facility] 12/22/2024 10:18:28 03/19/2025 text/html ABRAHAM reviewed and found compliant, Pain is located in lower back and neck and left knee. Pain feels like sharp and burning and ache, Pain is constant. Pain keeps him awake at night. Pain gets intense and severe at times. Pain made better by meds and ice packs Pain made worse by walking. Pain does radiate. Patient is a follow up. Medical management is stable and no changes today MG SHAHID MD [address], [place], [address], [facility] 03/19/2025 09:57:29 05/18/2025 text/html ABRAHAM reviewed and found compliant. Pain is located in the lower back and left knee and right shoulder , Pain feels like it is numbing feeling and burning and dull and ache and stabbing and electrical Pain is constant, Pain keeps the patient awake at night, Pain is intense and severe. Omer made better by meds. Pain made worse by walking. Pain does radiate. Patient is a follow up. Medical management is stable and no changes today MG SHAHID MD [address] [place], [address], [facility] 05/18/2025 08:54:26 07/17/2025 text/html ABRAHAM is reviewed and found compliant. Pain is in lower back and neck and shoulders. Pain feels like it is throbbing and sharp and burning and stabbing and tingly. Pain keeps the patient awake at night. Pain is constant. Pain gets intense and severe. Pain made better by meds. Pain made worse by walking. Pain does radiate. Patient is a follow up. Medical management is stable and no changes today MG SHAHID MD [address] [place], [address], [place] [facility] 07/17/2025 08:01:40 09/14/2025 text/html He is here today for [...] injections at the prior pain clinic in [place] and states he would get about a month of pain relief at about 50% and then it would wear off Anayeli Castaneda, [employer] [address] [facility], [place], [address], [place] [facility] 09/15/2025 19:19:48
--- OUTSIDE RECORDS SUMMARY | 2025-09-24 14:40 | XMS_ITS | CCD ---
Author Organization Unknown Care Team Providers Care Belt Fixer Name Role Phone Unavailable Primary Care Provider Unavailabl e Unavailable Chronic Care Management Unavaila ble Summary Purpose DataExchange Insurance Providers Payer name Policy type / Coverage type Covered green party ID Effective Begin Date Effective End Date [facility] [id number] Unknown Unknown Family History Family History data not found Medication Administered No Medication Administered data Reason For Visit No Reason For Visit data Medical Equipment No Medical Equipment data Advance Directives No Advance Directive data
--- OUTSIDE RECORDS SUMMARY | 2025-09-24 14:41 | XMS_ITS | CCD ---
Author Organization Unknown Care Team Providers Care Manager Nursing Name Role Phone Unavailable Primary Care Provider Unavailabl e Unavailable Chronic Care Management Unavaila ble Summary Purpose DataExchange Insurance Providers Payer name Policy type / Coverage type Covered green party ID Effective Begin Date Effective End Date [facility] [id number] Unknown Unknown Family History Family History data not found Medication Administered No Medication Administered data Reason For Visit No Reason For Visit data Medical Equipment No Medical Equipment data Advance Directives No Advance Directive data
[2025-09-25 08:52] LABS: Testosterone,Total 261 ng/dL (264-916)
== END 2025-09-23 23:59 | disposition home or self-care (01) ==
LOC: LAB.DROPOF 09-24 13:32
PROVIDERS: PCP Family Medicine; Visit Provider Family Medicine
DX: E29.1 Testicular hypofunction (principal); E11.9 Type 2 diabetes mellitus without complications
CPT/HCPCS: 80053; 80061; 84403; 85025